=== PATIENT | female | born 1945 | race Two or more races ===

== ENCOUNTER 2020-06-20 13:36 | Outpatient (REF) | payer MEDICARE, SELFPAY ==
--- NOTE | 2020-06-20 | MM_ITS ---
EXAMINATION: MM SCREENING DIGITAL BREAST TOMOSYNTHESIS, BILATERAL CLINICAL INFORMATION: Screening. Asymptomatic. The lifetime risk of breast cancer based on the Tyrer-Cuzick Model is 2%. COMPARISON: Mammography: 11/13/2018, 11/11/2017 TECHNIQUE: Digital breast tomosynthesis is performed in both the craniocaudal and mediolateral oblique views along with computer-aided detection (CAD). Synthesized 2D images are generated from the tomosynthesis. FINDINGS: There are scattered areas of fibroglandular density (ACR BI-RADS breast composition Category b). There are no significant masses, abnormal calcifications, or other abnormalities. There are scattered ductal secretory calcifications again noted bilateral medial breasts. Low right axillary tail node stable. There is a dermal lesion overlying the posterior upper left breast on MLO view. MM/MM tomosynthesis screening BI IMPRESSION: No mammographic evidence of malignancy. ASSESSMENT: BI-RADS 2: Benign RECOMMENDATION: Routine annual mammography screening. This patient's information was entered into a reminder system with a target due date for their next mammogram.
== END 2020-06-20 13:37 | disposition home or self-care (01) ==
LOC: HO.MAMMO 13:36
PROVIDERS: PCP Internal Medicine; Visit Provider Internal Medicine
DX: Z12.31 Encounter for screening mammogram for malignant neoplasm of breast (principal)
CPT/HCPCS: 77063; 77067

== ENCOUNTER 2020-08-25 07:21 | Day surgery (SDC) | payer MEDICARE, SELFPAY ==
[2020-08-19 12:42] VITALS: BMI 31.9
[2020-08-19 12:49] VITALS: BMI 31.9
--- NOTE | 2020-08-22 10:28 | P.CONAN_ITS ---
Documented by User: Haylee Mariee 08/22/20 10:29 HPI - Anesthesia Eval Consult details Narrative: 74yo F for Colonoscopy [facility] Past Medical History Medical History HTN (hypertension) Hyperglycemia Hyperlipidemia Osteopenia Thyroid nodule Family History Family History Father Stroke Mother No problems noted. Surgical History Surgical History H/O colonoscopy Hx of blepharoplasty S/P KWAKU (total abdominal hysterectomy) Social History Social History Smoking Status: Never smoker Use of substances other than those prescribed or required for medical reasons: No Advance Directives Information Provided: No Recently lost weight without trying: No Meds Allergies Allergy/AdvReac Type Severity Reaction Status Date / Time No Known Allergies Allergy Verified 06/23/20 15:05 Home Medications Medication Instructions Recorded Confirmed Type hydrochlorothiazide 25 mg tablet 25 mg PO DAILY 05/12/20 08/19/20 History metoprolol succinate 50 mg 50 mg PO DAILY 05/12/20 08/19/20 History tablet,extended release 24 hr simvastatin 40 mg tablet 40 mg PO DAILY 05/12/20 08/19/20 History Exam Exam Date and Time: August 22, 2020 1028 Height,Weight and Vital Signs: Height 5 ft 5 in Weight 87.09 kg Assessment and Plan Assessment Anesthesia Assessment: Chart Reviewed Documented by User: Josephine Cerda 08/25/20 08:55 [facility] Past Medical History Medical History HTN (hypertension) Hyperglycemia Hyperlipidemia Osteopenia Thyroid nodule Family History Family History Father Stroke Mother No problems noted. Surgical History Surgical History H/O colonoscopy Hx of blepharoplasty S/P KWAKU (total abdominal hysterectomy) Social History Social History Smoking Status: Never smoker Use of substances other than those prescribed or required for medical reasons: No Advance Directives Information Provided: No Recently lost weight without trying: No Meds Allergies Allergy/AdvReac Type Severity Reaction Status Date / Time No Known Allergies Allergy Verified 06/23/20 15:05 Home Medications Medication Instructions Recorded Confirmed Type hydrochlorothiazide 25 mg tablet 25 mg PO DAILY 05/12/20 08/19/20 History metoprolol succinate 50 mg 50 mg PO DAILY 05/12/20 08/19/20 History tablet,extended release 24 hr simvastatin 40 mg tablet 40 mg PO DAILY 05/12/20 08/19/20 History Exam Airway Mallampati Class: II TM Dist: >3cm Denture: Upper Heart: RRR Lungs: CtA
[2020-08-25 08:16] VITALS: BP 168/64; PULSE 80; RESP 18; TEMP 37; O2SAT 99
[2020-08-25] MEDS: Lactated Ringers 1,000 ML 100 ML IVCONT (08:23)
--- NOTE | 2020-08-25 08:32 | W.PM.OPN ---
Operative Note Operative Note Date of Service: 08/25/20 Narrative: Pre-op diagnosis: Colon cancer screening, history of colon polyps Post-op diagnosis: other (Colon polyps, diverticulosis, hemorrhoids) Procedure: COLONOSCOPY TO CECUM WITH SNARE POLYPECTOMY AND SUBMUCOSAL INJECTION Consent: Indications for the procedure and potential complications of bleeding, perforation, reaction to medications and missed diagnosis were discussed with the patient and informed consent was obtained. Instrument: Olympus PCF H 190 L variable stiffness pediatric colonoscope Monitoring: Vital signs and clinical assessment, intermittent blood pressure monitoring, continuous EKG monitoring, Pulse oximetry and Carbon Dioxide monitoring were done throughout the procedure. Colon withdrawl time was 21 minutes. Procedure: The patient was placed in the left lateral decubitis position and pre-procedure medications were administered. After a digital rectal examination of the ano-rectum, the video colonoscope was inserted into the rectum and advanced through the colon to the cecum. The colonoscope was slowly withdrawn in a retrograde panoramic fashion and the colon mucosa was carefully examined including a retroflexed view of the rectum. Findings and interventions are described below. Procedure Difficulty: Without difficulty Findings: Terminal Ileum: Not evaluated Cecum: Normal Ascending Colon: Two 8-10 mm sessile polyps removed with a cold snare. Transverse Colon: A 1.5 to 2 cms flat polyp raised with 3 cc of normal saline (submucosal injection) and removed with a hot snare. Moderate diverticulosis Descending Colon: Moderate diverticulosis Sigmoid Colon: Moderate diverticulosis Rectum: Normal Ano-rectum: Moderate internal hemorrhoids Colon preparation: Good Impression and Post Procedure Diagnosis: Colonoscopy Findings: Three medium sized polyps removed Moderate diverticulosis seen in the left and transverse colon Moderate hemorrhoids on retroflexed exam. Plan: Await pathology results Patient has an appointment on 09/02/20 in the [facility] with GINO Peters. Repeat Colonoscopy interval based on path results - in 2 years if polyps are adenomatous and due to a hx of colon. Above findings were reviewed with the patient and colon polyps and diverticulosis handouts were given in the discharge area Surgeon: Lela King MD Anesthesia: MAC (Dr Bowens) Estimated blood loss (mL): 0 Pathology: other (A. TC polyp x 1, B. AC polyps x 2) Condition: stable Disposition: PACU
--- NOTE | 2020-08-25 08:32 | MHC.SHP ---
Pre-Procedural Eval Section A The patient is an INPATIENT: No The History & Physical has been completed within 30 days and I have reviewed it.: No Section B Chief Complaint: Hx of Colon Polyps Details of Present Illness: hx of colon polyps Relevant Family History (Specify if Yes): No Relevant Social History: None Present Medications: see Short Stay Collaborative assessment Medical History: Significant History (Hypertention. Hyperlipid. Varicose veins. GERD. ) History of Previous Operations: Relevant previous surgery/procedure and date(s) (colonoscopy 3 polyps 06/2015 varicose veins surgery ) Allergies: Allergies Allergy/AdvReac Type Severity Reaction Status Date / Time No Known Allergies Allergy Verified 06/23/20 15:05 Review of Systems Sugical H&P ROS: Negative: Constitution, Cardiovascular, Respiratory and Gastrointestinal Exam Surgical H&P Exam: Normal: Heart, Normal: Lungs, Normal: Extremities and Normal: Abdomen Plan Diagnosis/Plan: Unchanged I have reviewed the history and physical and performed a pertinent physical examination on my patient. No changes have occurred unless specified.
[2020-08-25 09:25] VITALS: BP 121/70; PULSE 72; RESP 16; TEMP 36.2; O2SAT 99
--- NOTE | 2020-08-25 09:33 | HO.POSTANES ---
Post Anesthesia Evaluation Post Anesthesia Evaluation Vital Signs: Vital Signs Temp Pulse Resp BP Pulse Ox 08/25/20 08:16 98.6 F 80 18 168/64 H 99 Anesthesia: Monitored Mental Status: Awake Pain Control: Satisfactory Nausea/Vomiting: None Hydration: Adequate Anesthesia-Related Issues: No Anes. Related Issues
[2020-08-25 09:40] VITALS: BP 139/86; PULSE 71; RESP 17; TEMP 36.2; O2SAT 99
== END 2020-08-25 10:02 | disposition home or self-care (01) ==
PROVIDERS: PCP Internal Medicine; Visit Provider Internal Medicine Gastroenterology
PROC: 0DJD8ZZ Inspection of Lower Intestinal Tract, Via Natural or Artificial Opening Endoscopic (ICD-10-PCS; CPT 45378; principal; 2020-08-25 08:30)
DX: Z12.11 Encounter for screening for malignant neoplasm of colon (principal); Z86.010 Personal history of colon polyps; D12.2 Benign neoplasm of ascending colon; D12.3 Benign neoplasm of transverse colon; K57.30 Diverticulosis of large intestine without perforation or abscess without bleeding; K64.8 Other hemorrhoids; I10 Essential (primary) hypertension; M85.80 Other specified disorders of bone density and structure, unspecified site; R73.9 Hyperglycemia, unspecified; Z79.899 Other long term (current) drug therapy
CPT/HCPCS: 45385; 45381; 88305

== ENCOUNTER → 2020-09-02 08:44 | Outpatient (BNVA) | payer BC, SELFPAY | PROVIDERS: PCP Internal Medicine; Referring Provider Internal Medicine; Visit Provider Physician Assistant ==

== ENCOUNTER 2021-02-17 08:19 | Outpatient (REF) | payer MEDICARE, SELFPAY ==
[2021-02-17 10:11] LABS: Alanine Aminotransferase 22 U/L (0-31); Albumin Level 4.1 g/dL (3.5-5.0); Alkaline Phosphatase 60 U/L (39-117); Anion Gap 12 (12-20); Aspartate Amino Transferase 23 U/L (5-31); Bilirubin Total 0.7 mg/dL (0.0-1.0); Blood Urea Nitrogen 14 mg/dL (9-16); Calcium 9.4 mg/dL (8.4-10.2); Carbon Dioxide 30 mmol/L (22-29); Chloride 104 mmol/L (96-108); Estimated Glomerular Filt Rate > 60; Glucose Fasting 114 mg/dL (60-99); Potassium 4.2 mmol/L (3.3-5.1); Sodium 142 mmol/L (135-145); Total Protein 6.9 g/dL (6.5-8.0)
== END 2021-02-17 08:20 | disposition home or self-care (01) ==
LOC: HO.LAB 08:19
PROVIDERS: PCP Internal Medicine; Visit Provider Internal Medicine
DX: E78.5 Hyperlipidemia, unspecified (principal)
CPT/HCPCS: 36415; 80053

== ENCOUNTER 2021-02-24 10:12 | Outpatient (REF) | payer MEDICARE, SELFPAY ==
[2021-02-24 11:22] LABS: Glucose Urine UA NEG (NEG); Leukocyte Esterase Urine NEG (NEG); Nitrite Urine NEG (NEG); Urine Blood NEG (NEG); Urine Ketones NEG (NEG); Urine Protein NEG (NEG-TRACE)
[2021-02-24 11:29] LABS: Appearance Urine CLEAR; Color Urine YELLOW
== END 2021-02-24 10:13 | disposition home or self-care (01) ==
LOC: HO.HMGCLDS 10:12
PROVIDERS: PCP Internal Medicine; Visit Provider Internal Medicine
DX: R30.0 Dysuria (principal)
CPT/HCPCS: 81003

== ENCOUNTER 2021-07-03 08:59 | Outpatient (REF) | payer MEDICARE, SELFPAY ==
[2021-07-03 12:02] LABS: Hematocrit 41.5 % (37.0-47.0); Hemoglobin 13.5 g/dl (12.0-16.0); Mean Corpuscular HGB Conc 32.5 g/dl (31.0-35.0); Mean Corpuscular Hemoglobin 29.5 pg (27.0-33.0); Mean Corpuscular Volume 90.6 fL (80.0-98.0); Mean Platelet Volume 11.6 fL (9.4-12.3); Platelet Count 200 X10*3/uL (160-400); Red Blood Count 4.58 X10*6/uL (4.20-5.50); Red Cell Distribution Width 13.1 % (11.0-16.0); White Blood Count 6.7 X10*3/uL (4.8-10.8)
[2021-07-03 12:04] LABS: Estimated Average Glucose 128 mg/dL; Hemoglobin A1c % 6.1 %
[2021-07-03 12:30] LABS: Alanine Aminotransferase 25 U/L (0-31); Albumin Level 4.2 g/dL (3.5-5.0); Alkaline Phosphatase 58 U/L (39-117); Anion Gap 12 (12-20); Aspartate Amino Transferase 22 U/L (5-31); Bilirubin Total 0.9 mg/dL (0.0-1.0); Blood Urea Nitrogen 17 mg/dL (9-16); Calcium 9.6 mg/dL (8.4-10.2); Carbon Dioxide 29 mmol/L (22-29); Chloride 105 mmol/L (96-108); Cholesterol 189 mg/dL; Estimated Glomerular Filt Rate > 60; Glucose Fasting 121 mg/dL (60-99); HDL Cholesterol 43 mg/dL; LDL Cholesterol Calculated 118 mg/dl; Potassium 4.3 mmol/L (3.3-5.1); Sodium 142 mmol/L (135-145); Total Protein 7.1 g/dL (6.5-8.0); Triglycerides 144 mg/dL
== END 2021-07-03 09:00 | disposition home or self-care (01) ==
LOC: HO.HMGCLDS 08:59
PROVIDERS: PCP Internal Medicine; Visit Provider Internal Medicine
DX: E78.5 Hyperlipidemia, unspecified (principal); I10 Essential (primary) hypertension; R73.9 Hyperglycemia, unspecified
CPT/HCPCS: 36415; 80053; 80061; 83036; 85027

== ENCOUNTER 2021-07-13 08:15 | Outpatient (REF) | payer MEDICARE, SELFPAY ==
--- NOTE | ~2021-07-13 | MM_ITS ---
EXAMINATION: MM SCREENING DIGITAL BREAST TOMOSYNTHESIS, BILATERAL CLINICAL INFORMATION: Screening. Asymptomatic. The lifetime risk of breast cancer based on the Tyrer-Cuzick Model is 2%. COMPARISON: Mammography: 06/20/2020, 11/13/2018, 11/11/2017 TECHNIQUE: Digital breast tomosynthesis is performed in both the craniocaudal and mediolateral oblique views along with computer-aided detection (CAD). Synthesized 2D images are generated from the tomosynthesis. FINDINGS: There are scattered areas of fibroglandular density (ACR BI-RADS breast composition Category b). There are no significant masses, abnormal calcifications, or other abnormalities. Scattered bilateral ductal secretory calcifications are again seen greater in the bilateral medial breasts. There is a dermal lesion overlying the posterior upper outer left upper left breast. No significant changes. MM/MM tomosynthesis screening BI IMPRESSION: No mammographic evidence of malignancy. ASSESSMENT: BI-RADS 2: Benign RECOMMENDATION: Routine annual mammography screening. This patient's information was entered into a reminder system with a target due date for their next mammogram.
== END 2021-07-13 08:16 | disposition home or self-care (01) ==
LOC: HO.MAMMO 08:15
PROVIDERS: PCP Internal Medicine; Visit Provider Internal Medicine
DX: Z12.31 Encounter for screening mammogram for malignant neoplasm of breast (principal)
CPT/HCPCS: 77063; 77067

== ENCOUNTER 2021-11-28 08:47 | Outpatient (REF) | payer MEDICARE, SELFPAY ==
[2021-11-28 11:13] LABS: Hemoglobin 13.1 g/dl (12.0-16.0); Mean Corpuscular HGB Conc 32.8 g/dl (31.0-35.0); Mean Corpuscular Hemoglobin 29.1 pg (27.0-33.0); Mean Corpuscular Volume 88.9 fL (80.0-98.0); Mean Platelet Volume 11.8 fL (9.4-12.3); Platelet Count 232 X10*3/uL (160-400); Red Cell Distribution Width 12.4 % (11.0-16.0); White Blood Count 8.2 X10*3/uL (4.8-10.8)
[2021-11-28 11:27] LABS: Alanine Aminotransferase 23 U/L (0-31); Albumin Level 4.3 g/dL (3.5-5.0); Alkaline Phosphatase 67 U/L (39-117); Anion Gap 13 (12-20); Aspartate Amino Transferase 22 U/L (5-31); Bilirubin Total 0.7 mg/dL (0.0-1.0); Blood Urea Nitrogen 12 mg/dL (9-16); Calcium 10.2 mg/dL (8.4-10.2); Carbon Dioxide 30 mmol/L (22-29); Chloride 102 mmol/L (96-108); Cholesterol 197 mg/dL; Estimated Glomerular Filt Rate > 60; Glucose Fasting 117 mg/dL (60-99); HDL Cholesterol 40 mg/dL; LDL Cholesterol Calculated 130 mg/dl; Potassium 3.9 mmol/L (3.3-5.1); Sodium 141 mmol/L (135-145); Total Protein 7.5 g/dL (6.5-8.0); Triglycerides 137 mg/dL
[2021-11-28 12:14] LABS: Estimated Average Glucose 128 mg/dL; Hemoglobin A1C 151.0045 umol/L; Hemoglobin A1c % 6.1 %
== END 2021-11-28 08:48 | disposition home or self-care (01) ==
LOC: HO.HMGCLDS 08:47
PROVIDERS: PCP Internal Medicine; Visit Provider Internal Medicine
DX: I10 Essential (primary) hypertension (principal); R73.9 Hyperglycemia, unspecified; E78.5 Hyperlipidemia, unspecified
CPT/HCPCS: 36415; 80053; 80061; 83036; 85027

== ENCOUNTER → 2022-04-27 10:14 | Outpatient (BNVA) | payer MEDICARE, SELFPAY | PROVIDERS: PCP Internal Medicine; Visit Provider Surgery Vascular Surgery | DX: I83.12 Varicose veins of left lower extremity with inflammation (principal) | CPT/HCPCS: 99212 ==

== ENCOUNTER 2022-05-14 08:48 | Outpatient (REF) | payer MEDICARE, SELFPAY ==
[2022-05-14 11:39] LABS: Hematocrit 40.3 % (37.0-47.0); Hemoglobin 13.1 g/dl (12.0-16.0); Mean Corpuscular HGB Conc 32.5 g/dl (31.0-35.0); Mean Corpuscular Hemoglobin 28.4 pg (27.0-33.0); Mean Corpuscular Volume 87.4 fL (80.0-98.0); Mean Platelet Volume 11.6 fL (9.4-12.3); Platelet Count 237 X10*3/uL (160-400); Red Blood Count 4.61 X10*6/uL (4.20-5.50); Red Cell Distribution Width 13.1 % (11.0-16.0); White Blood Count 8.2 X10*3/uL (4.8-10.8)
[2022-05-14 11:50] LABS: Estimated Average Glucose 126 mg/dL; Hemoglobin A1C 148.8228 umol/L
[2022-05-14 12:10] LABS: Alanine Aminotransferase 20 U/L (0-31); Albumin Level 4.4 g/dL (3.5-5.0); Alkaline Phosphatase 72 U/L (39-117); Anion Gap 16 (12-20); Aspartate Amino Transferase 21 U/L (5-31); Bilirubin Total 0.8 mg/dL (0.0-1.0); Blood Urea Nitrogen 14 mg/dL (9-16); Calcium 9.7 mg/dL (8.4-10.2); Carbon Dioxide 29 mmol/L (22-29); Chloride 101 mmol/L (96-108); Cholesterol 223 mg/dL; Estimated Glomerular Filt Rate > 60; Glucose Fasting 116 mg/dL (60-99); HDL Cholesterol 53 mg/dL; LDL Cholesterol Calculated 142 mg/dl; Potassium 3.8 mmol/L (3.3-5.1); Sodium 142 mmol/L (135-145); Total Protein 7.5 g/dL (6.5-8.0); Triglycerides 141 mg/dL
[2022-05-14 12:19] LABS: Creatinine Urine 272.76 mg/dL; Microalbum/Creatinine Ratio Ur 9.8 ug/mg cr
== END 2022-05-14 08:49 | disposition home or self-care (01) ==
LOC: HO.HMGCLDS 08:48
PROVIDERS: PCP Internal Medicine; Visit Provider Internal Medicine
DX: E78.5 Hyperlipidemia, unspecified (principal); I10 Essential (primary) hypertension
CPT/HCPCS: 36415; 80053; 80061; 82043; 83036; 85027

== ENCOUNTER 2022-06-23 10:08 | Outpatient (REF) | payer MEDICARE, SELFPAY ==
--- NOTE | ~2022-06-23 | US_ITS ---
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 History of right great saphenous vein stripping and left great saphenous vein ablation COMPARISON: None. TECHNIQUE: Color flow triplex imaging and compression Doppler was performed to evaluate both the deep and the superficial systems bilaterally. To evaluate the superficial system, the examination was performed in the upright position. Color-flow Doppler ultrasound and compression ultrasound were utilized. In addition, maneuvers were utilized to demonstrate reflux. FINDINGS: 1. DEEP VENOUS ULTRASOUND OF THE RIGHT LOWER EXTREMITY: Common Femoral Vein: Compressible, normal respiratory variation and augmented flow. Femoral Vein: Compressible, normal color flow and augmentation. Popliteal Vein: Compressible, normal augmentation. Deep Reflux: There is no evidence of reflux in the deep system in either the common femoral vein or the popliteal vein. There is no evidence of a Echavarria's cyst. 2. SUPERFICIAL ULTRASOUND WITH DOPPLER OF RIGHT LOWER EXTREMITY: GREAT SAPHENOUS VEIN: Saphenofemoral Junction: 0.6 cm; Reflux: 0 ms Remainder of the great saphenous vein is not visualized consistent with prior vein stripping DUPLICATED MEDIAL GREAT SAPHENOUS VEIN: Diameter: None Imaged Reflux: NA DUPLICATED LATERAL GREAT SAPHENOUS VEIN: Diameter: None Imaged Reflux: NA SMALL SAPHENOUS VEIN: Proximal: 0.3 cm; Reflux: 0 ms Distal: 0.3 cm; Reflux: 0 ms VEIN OF GIACOMINI: None Imaged. PERFORATORS: Location: Mid thigh, proximal calf, mid calf Size: 0.3 to 0.7 cm Reflux: Up to 3032 ms within the mid to thigh agronomy technician VARICOSITIES: Location: Mid thigh and knee arising from the agronomy technician veins, mid calf and distal calf Size: 0.3 to 0.9 cm Reflux: 932 ms to 2560 ms 3. DEEP VENOUS ULTRASOUND OF THE LEFT LOWER EXTREMITY: Common Femoral Vein: Compressible, normal respiratory variation and augmented flow. Femoral Vein: Compressible, normal color flow and augmentation. Popliteal Vein: Compressible, normal augmentation. Deep Reflux: There is reflux in the common femoral vein measuring 1884 ms. There is reflux in the mid superficial femoral vein measuring 2340 ms There is no evidence of a Echavarria's cyst. 4. SUPERFICIAL ULTRASOUND WITH DOPPLER OF LEFT LOWER EXTREMITY: GREAT SAPHENOUS VEIN: Saphenofemoral Junction: 1.1 cm; Reflux: 0 ms Proximal Thigh: 0.5 cm; Reflux: 0 ms Remainder of the great saphenous vein is not visualized consistent with prior ablation DUPLICATED MEDIAL GREAT SAPHENOUS VEIN: Diameter: None Imaged Reflux: NA DUPLICATED LATERAL GREAT SAPHENOUS VEIN: Diameter: None Imaged Reflux: NA SMALL SAPHENOUS VEIN: Proximal: 0.2 cm; Reflux: 0 ms Distal: 0.3 cm; Reflux: 2992 ms VEIN OF GIACOMINI: None Imaged. PERFORATORS: Location: Mid thigh, proximal calf, mid calf and distal calf Size: 0.3 to 0.8 cm Reflux: 3276 ms to 3448 ms within the mid to thigh perforators VARICOSITIES: Location: Mid thigh, anterior thigh and knee arising from the agronomy technician veins. The distal calf Size: 0.3 to 0.5 cm Reflux: Ranging from 2816 ms to 3436 ms US/US venous duplex LE BI IMPRESSION: Right: Status post prior right great saphenous vein stripping. There are multiple agronomy technician veins with reflux extending into multiple varicose veins as described above Left: Status post left great saphenous vein ablation. There are multiple agronomy technician veins with reflux extending into multiple varicose veins as described above
== END 2022-06-23 10:09 | disposition home or self-care (01) ==
LOC: HO.US 10:08
PROVIDERS: Visit Provider Surgery Vascular Surgery
DX: I83.12 Varicose veins of left lower extremity with inflammation (principal)
CPT/HCPCS: 93970

== ENCOUNTER → 2022-06-29 08:57 | Outpatient (BNVA) | payer MEDICARE, SELFPAY | PROVIDERS: PCP Internal Medicine; Visit Provider Surgery Vascular Surgery | DX: I83.12 Varicose veins of left lower extremity with inflammation (principal) | CPT/HCPCS: 99212 ==

== ENCOUNTER 2022-07-27 07:26 | Outpatient (REF) | payer MEDICARE, SELFPAY ==
--- NOTE | ~2022-07-27 | MM_ITS ---
EXAMINATION: MM SCREENING DIGITAL BREAST TOMOSYNTHESIS, BILATERAL CLINICAL INFORMATION: Screening. Asymptomatic. The lifetime risk of breast cancer based on the Tyrer-Cuzick Model is 1%. COMPARISON: Mammography: July 13, 2021 and studies dating back to October 23, 2015 TECHNIQUE: Digital breast tomosynthesis is performed in both the craniocaudal and mediolateral oblique views along with computer-aided detection (CAD). Synthesized 2D images are generated from the tomosynthesis. FINDINGS: There are scattered areas of fibroglandular density (ACR BI-RADS breast composition Category b). There are no significant masses, abnormal calcifications, or other abnormalities. MM/MM tomosynthesis screening BI IMPRESSION: No significant changes from prior exam. ASSESSMENT: BI-RADS 1: Negative RECOMMENDATION: Routine annual mammography screening. This patient's information was entered into a reminder system with a target due date for their next mammogram.
== END 2022-07-27 07:27 | disposition home or self-care (01) ==
LOC: HO.MAMMO 07:26
PROVIDERS: PCP Internal Medicine; Visit Provider Internal Medicine
DX: Z12.31 Encounter for screening mammogram for malignant neoplasm of breast (principal)
CPT/HCPCS: 77063; 77067

== ENCOUNTER 2022-08-23 09:49 | Day surgery (SDC) | payer MEDICARE, SELFPAY ==
[2022-08-18 10:07] VITALS: BMI 30.7
[2022-08-23] VITALS (7 sets, daily range): BP systolic 130–169; BP diastolic 61–75; PULSE 56–67; RESP 16–20; TEMP 36.1–36.4; O2SAT 94–100
--- NOTE | 2022-08-23 11:40 | HO.ANESPROP2 ---
HPI - Anesthesia Eval Consult details Narrative: 76 F for micro phebotomy left varicose veins PMFSH Active Problems Active Problems: All Active Problems (Updated 04/27/22 @ 11:04 by Dago Jaeger MD) Abnormal colonoscopy (Acute) Varicose veins of left lower extremity with inflammation (Acute) Dysuria (Acute) Osteopenia (Acute) Hyperglycemia (Acute) Hyperlipidemia (Acute) HTN (hypertension) (Acute) Past Medical History Medical History Dysuria HTN (hypertension) Hyperglycemia Hyperlipidemia Osteopenia Thyroid nodule Functional capacity: independent ambulation Family History Family History Father Stroke Mother No problems noted. Family history of problems with anesthesia: No Surgical History Surgical History (Updated 08/18/22 @ 09:59 by Digna Ledezma RN) H/O colonoscopy Hx of blepharoplasty Hx of vein stripping S/P KWAKU (total abdominal hysterectomy) History of Problems with Anesthesia: No Social History Social History Household Members: Spouse Housing: House Are you a primary outdoor emergency care technician to a significant other at home: No Do you presently have visiting nurse or other home services: No Alcohol intake: current Alcohol intake frequency: does not drink Patient Tobacco Use Status: Never used Tobacco e-Cigarette/Vaping Use: Never Used Current occupational status: retired Cognitive needs: No Hearing needs: No Vision needs: Yes Meds Allergies Allergy/AdvReac Type Severity Reaction Status Date / Time No Known Allergies Allergy Verified 06/29/22 09:08 Home Medications Medication Instructions Recorded Confirmed Last Taken Type omega 6-wze-zlu-fish oil 60 mg-90 1 cap PO DAILY 08/23/22 08/23/22 08/09/22 History mg-500 mg capsule (Fish Oil) Exam Exam Date and Time: August 23, 2022 1140 Height,Weight and Vital Signs: Height 5 ft 5 in Weight 83.915 kg Last Vital Signs Temp 97.6 F 08/23/22 10:19 Pulse 60 08/23/22 10:19 Resp 20 08/23/22 10:19 BP 169/75 H 08/23/22 10:19 Pulse Ox 97 08/23/22 10:19 O2 Del Method 08/23/22 10:19 Airway Mallampati Class: III Denture: Upper Loose/Missing/Broken Teeth: Yes Heart: S1,S2 Lungs: b/l breath sounds Assessment and Plan Assessment Anesthesia Assessment: Anesthesia Plan Discussed and Chart Reviewed Final Anesthetic Review Family History of Problems with Anesthesia: No History of Problems with Anesthesia: No NPO: Yes ASA Class: III Final Preanesthetic Review: Meds/Allgs Chart Reviewed, Consent Obtained/Reviewed and Anes Risks/Benef Reviewed Patient Risk: Intermediate Procedure Risk: Intermediate Anesthetic Plan Anesthetic Plan: GA Disposition: Standard PACU
--- NOTE | 2022-08-23 11:42 | MHC.SHP ---
Pre-Procedural Eval Section A Date of Service: 08/23/22 The patient is an INPATIENT: No Changes since office visit: Yes Patient answered all questions The History & Physical has been completed within 30 days and I have reviewed it.: Yes Section B Chief Complaint: Varicose veins of left lower extremity with inflam Allergies: Allergies Allergy/AdvReac Type Severity Reaction Status Date / Time No Known Allergies Allergy Verified 06/29/22 09:08 Plan I have reviewed the history and physical and performed a pertinent physical examination on my patient. No changes have occurred unless specified. Time Spent With Patient Time: Total time managing care of this patient today ____ minutes.
--- NOTE | 2022-08-23 13:12 | P.OP_ITS ---
Operative Note Operative Note Date of Service: 08/23/22 Narrative: Operative note by [facility] Preoperative diagnosis: Left leg varicose veins with inflammation Postoperative diagnosis: Same Procedure:1. Left leg microphlebectomy(27) 2. Ligation of left leg venous c luster Surgeon:Dago Jaeger M.D. Cable Tv Installer: Jordan Anesthesia: General Specimens: 1 Drains: None Estimated blood loss: 100 mL Indications: Very pleasant 76-year-old female presents for treatment of left lower extremity varicosities. She has significant large varicosities greater than 4-5 mm. She now presents for operative intervention The patient has signed the informed consent after reviewing risks, complications, benefits, and alternatives previously discussed with the patient. The patient was given the opportunity to ask any additional questions or voice any concerns. All qu estions were answered to the patient's satisfaction. Procedure in detail: Varicose veins were marked in the standing position on the left leg and the patient was then placed in the supine position. The left lower extremity was prepared and draped to allow knee flexion in the sterile field. The patient had large superficial varicose veins with significant symptoms of pain. It was therefore determined to perform microphlebectomies of the clusters of varicose veins. The patient had bulging varicose veins which were previously marked in the standing position. A small stab incision was made longitudinally directly overlying the varicose vein in the calf and the varicose vein was grasped with a hemostat aided by a vein hook. It was then dissected as far proximally and distally as possible and avulsed. A total of 27 stab incisions were made and the procedure of stab phlebectomies was repeated 27 times. On the left medial thigh and there was a cluster of varicosities. Using 11 blade we got down to the base of the varicosities. This was suture ligated with a 3-0 Polysorb suture. Residual varicosities were removed. Hemostasis was checked and stab incision sites were closed with steri-strips and sterile dressing was given with gauze and krilex wrap followed by an didi bandage. There were no complications and blood loss was 100 mll. Post-Op instructions were given and a follow-up appointment was recommended. This note is constructed using voice recognition software. While every effort has been made to ensure accuracy, knockout machine operator errors may have been included. Thank you for allowing me to participate in the care of your patient. Yours sincerely, Dago Jaeger MD, FACS, R.P.V.I.
[2022-08-23] MEDS: oxyCODONE HCl Immed Release 5 MG TABLET PO (13:18)
[2022-08-23] MEDS: Acetaminophen 325 MG TABLET 650 MG PO (13:19)
== END 2022-08-23 14:22 | disposition home or self-care (01) ==
PROVIDERS: PCP Internal Medicine; Visit Provider Surgery Vascular Surgery
PROC: (CPT 37766; principal; 2022-08-23 11:50)
DX: I83.12 Varicose veins of left lower extremity with inflammation (principal); I10 Essential (primary) hypertension; E78.5 Hyperlipidemia, unspecified; R73.9 Hyperglycemia, unspecified; M85.80 Other specified disorders of bone density and structure, unspecified site; Z79.51 Long term (current) use of inhaled steroids; Z79.899 Other long term (current) drug therapy
CPT/HCPCS: 37766; 37785; 88304; J0690; J1100; J1170; J2405; J2795

== ENCOUNTER → 2022-09-07 08:54 | Outpatient (BNVA) | payer MEDICARE, SELFPAY | PROVIDERS: PCP Internal Medicine; Visit Provider Surgery Vascular Surgery | DX: I83.12 Varicose veins of left lower extremity with inflammation (principal); I83.11 Varicose veins of right lower extremity with inflammation; Z98.890 Other specified postprocedural states | CPT/HCPCS: 99212 ==

== ENCOUNTER → 2022-11-09 09:09 | Outpatient (BNVA) | payer MEDICARE, SELFPAY | PROVIDERS: PCP Internal Medicine; Visit Provider Surgery Vascular Surgery | DX: I83.11 Varicose veins of right lower extremity with inflammation (principal); I83.12 Varicose veins of left lower extremity with inflammation | CPT/HCPCS: 99212 ==

== ENCOUNTER 2022-11-11 06:56 | Outpatient (REF) | payer MEDICARE, SELFPAY ==
[2022-11-11 07:05] LABS: MANUAL DIFF FLAG NO
[2022-11-11 07:32] LABS: Basophils Absolute Auto 0.1 X10*3/uL (0.0-0.2); Basophils Percent Auto 0.5 % (0-2); Eosinophils Absolute Auto 0.3 X10*3/uL (0.0-0.4); Eosinophils Percent Auto 3.2 % (0-4); Hematocrit 40.1 % (37.0-47.0); Hemoglobin 12.9 g/dl (12.0-16.0); Imm Gran Abs Auto 0.03 X10*3/uL (0.00-0.03); Imm Gran Pct Auto 0.3 % (0.0-0.4); Lymphocytes Absolute Auto 4.4 X10*3/uL (1.2-4.9); Lymphocytes Percent Auto 44.3 % (20-40); Mean Corpuscular HGB Conc 32.2 g/dl (31.0-35.0); Mean Corpuscular Hemoglobin 28.1 pg (27.0-33.0); Mean Corpuscular Volume 87.4 fL (80.0-98.0); Mean Platelet Volume 11.4 fL (9.4-12.3); Monocytes Absolute Auto 0.8 X10*3/uL (0.1-1.2); Monocytes Percent Auto 7.6 % (2-11); Neutrophils Absolute Auto 4.3 x10*3/uL (2.0-8.3); Neutrophils Percent Auto 44.1 % (45-73); Platelet Count 226 X10*3/uL (160-400); Red Blood Count 4.59 X10*6/uL (4.20-5.50); Red Cell Distribution Width 13.2 % (11.0-16.0); White Blood Count 9.8 X10*3/uL (4.8-10.8)
[2022-11-11 07:45] LABS: Estimated Average Glucose 123 mg/dL; Hemoglobin A1c % 5.9 %
[2022-11-11 08:01] LABS: Alanine Aminotransferase 20 U/L (0-31); Albumin Level 4.2 g/dL (3.5-5.0); Alkaline Phosphatase 70 U/L (39-117); Anion Gap 13 (12-20); Aspartate Amino Transferase 20 U/L (5-31); Bilirubin Total 0.8 mg/dL (0.0-1.0); Blood Urea Nitrogen 15 mg/dL (9-16); Calcium 9.6 mg/dL (8.4-10.2); Carbon Dioxide 30 mmol/L (22-29); Chloride 104 mmol/L (96-108); Cholesterol 215 mg/dL; Estimated Glomerular Filt Rate > 60; Glucose Fasting 124 mg/dL (60-99); HDL Cholesterol 49 mg/dL; LDL Cholesterol Calculated 133 mg/dl; Sodium 143 mmol/L (135-145); Total Protein 6.7 g/dL (6.5-8.0); Triglycerides 168 mg/dL
[2022-11-11 08:15] LABS: TSH reflex Free T4 2.61 uIU/mL (0.32-4.0); Vitamin D 25-OH Total 49.9 ng/mL (>30)
== END 2022-11-11 06:57 | disposition home or self-care (01) ==
LOC: HO.LAB 06:56
PROVIDERS: PCP Internal Medicine; Visit Provider Internal Medicine
DX: E78.5 Hyperlipidemia, unspecified (principal); I10 Essential (primary) hypertension; R73.9 Hyperglycemia, unspecified; M85.80 Other specified disorders of bone density and structure, unspecified site
CPT/HCPCS: 36415; 80053; 80061; 82306; 83036; 84443; 85025

== ENCOUNTER 2023-03-07 06:41 | Day surgery (SDC) | payer MEDICARE, SELFPAY ==
[2023-03-02 15:28] VITALS: BMI 30.3
[2023-03-07 07:22] VITALS: BP 177/67; PULSE 69; RESP 18; TEMP 36.2; O2SAT 98
[2023-03-07 07:25] VITALS: BMI 30.4
[2023-03-07] MEDS: Lactated Ringers 1,000 ML 100 ML IVCONT (07:43)
--- NOTE | 2023-03-07 07:44 | MHC.SHP ---
Pre-Procedural Eval Section A Date of Service: 03/07/23 The patient is an INPATIENT: No The History & Physical has been completed within 30 days and I have reviewed it.: No Section B Chief Complaint: Screening, history of colon polyps Relevant Family History (Specify if Yes): No Relevant Social History: None Present Medications: see Short Stay Collaborative assessment Medical History: Significant History (HTN (hypertension) Hyperglycemia Hyperlipidemia Osteopenia Thyroid nodule) History of Previous Operations: Relevant previous surgery/procedure and date(s) (H/O colonoscopy Hx of blepharoplasty S/P KWAKU (total abdominal hysterectomy)) Allergies: Allergies Allergy/AdvReac Type Severity Reaction Status Date / Time No Known Allergies Allergy Verified 12/16/22 08:42 Review of Systems Sugical H&P ROS: Negative: Constitution, Cardiovascular, Respiratory and Gastrointestinal Exam Surgical H&P Exam: Normal: Heart, Normal: Lungs, Normal: Extremities and Normal: Abdomen Plan Diagnosis/Plan: Unchanged I have reviewed the history and physical and performed a pertinent physical examination on my patient. No changes have occurred unless specified. Time Spent With Patient Time: Total time managing care of this patient today ____ minutes.
--- NOTE | 2023-03-07 08:19 | P.CONAN_ITS ---
HPI - Anesthesia Eval Consult details Narrative: Colonic Surveillance [facility] Active Problems Active Problems: All Active Problems (Updated 11/15/22 @ 09:28 by Katelyn Heart MD) Abnormal colonoscopy (Acute) Varicose veins of left lower extremity with inflammation (Acute) Varicose veins of right lower extremity with inflammation (Acute) Dysuria (Acute) Osteopenia (Acute) Hyperglycemia (Acute) Hyperlipidemia (Acute) HTN (hypertension) (Acute) Past Medical History Medical History Dysuria HTN (hypertension) Hyperglycemia Hyperlipidemia Osteopenia Thyroid nodule Family History Family History Father Stroke Mother No problems noted. Family history of problems with anesthesia: No Surgical History Surgical History H/O colonoscopy History of surgery Hx of blepharoplasty Hx of vein stripping S/P KWAKU (total abdominal hysterectomy) History of Problems with Anesthesia: No Social History Social History Household Members: Spouse Housing: House Are you a primary patient care coordinator to a significant other at home: No Do you presently have visiting nurse or other home services: No Alcohol intake: current Alcohol intake frequency: does not drink Patient Tobacco Use Status: Never used Tobacco e-Cigarette/Vaping Use: Never Used Use of substances other than those prescribed or required for medical reasons: No Have you been hit, kicked, punched, or otherwise hurt by someone within the past year? If so, by whom?: No Are you DNR?: No Advance Directives: No ( is primary contact) Advance Directives Information Provided: Yes (brochure mailed) Advance Directives on File: No Recently lost weight without trying: No Eating poorly because of decreased appetite: No Nutrition Risks: Surgical patient >75years Poor oral hygiene: No (partial denture) Current occupational status: retired Cognitive needs: No Hearing needs: No Vision needs: Yes Meds Allergies Allergy/AdvReac Type Severity Reaction Status Date / Time No Known Allergies Allergy Verified 12/16/22 08:42 Active Medications: Current Medications Lactated Ringer's (Lr) 1,000 mls @ 100 mls/hr IVCONT .Q10H KO Last Admin: 03/07/23 07:43 Dose: 100 mls/hr Home Medications Medication Instructions Recorded Confirmed Last Taken Type omega 8-xhe-qnt-fish oil 60 mg-90 1 cap PO DAILY 08/23/22 03/02/23 08/09/22 Hi story mg-500 mg capsule (Fish Oil) Exam Exam Date and Time: March 07, 2023 0819 Height,Weight and Vital Signs: Height 5 ft 5 in Weight 83.007 kg Last Vital Signs Temp 97.2 F 03/07/23 07:22 Pulse 69 03/07/23 07:22 Resp 18 03/07/23 07:22 BP 177/67 H 03/07/23 07:22 Pulse Ox 98 03/07/23 07:22 O2 Del Method Room Air 03/07/23 07:22 Airway Mallampati Class: II TM Dist: >3cm Denture: Upper and Lower Loose/Missing/Broken Teeth: Yes Heart: rrr+[id number] Lungs: cta b/l Assessment and Plan Assessment Anesthesia Assessment: Anesthesia Plan Discussed and Chart Reviewed Final Anesthetic Review Family History of Problems with Anesthesia: No History of Problems with Anesthesia: No NPO: Yes ASA Class: III Final Preanesthetic Review: No Changes in Pt Med Stat, Meds/Allgs Chart Reviewed, Consent Obtained/Reviewed and Anes Risks/Benef Reviewed Patient Risk: Intermediate Procedure Risk: Intermediate Assessment/Block/Sedation in SS: Assess/Block/Sedation-SS Anesthetic Plan Anesthetic Plan: MAC: and Agree w/ Assess. and Plan Disposition: Standard PACU
--- NOTE | 2023-03-07 08:27 | P.OP_ITS ---
Operative Note Operative Note Date of Service: 03/07/23 Narrative: COLONOSCOPY TILL CECUM WITH BIOPSIES, SNARE POLYPECTOMY AND SUBMUCOSAL INJECTION Pre-op diagnosis: Colon cancer screening, history of colon polyps Post-op diagnosis:? Colon polyps, diverticulosis, hemorrhoids Endoscopist:? Lela King MD Anesthesia:?MAC Consent: Indications for the procedure and potential complications of bleeding, perforation, reaction to medications and missed diagnosis were discussed with the patient and informed consent was obtained. Instrument: Olympus PCF H 190 L variable stiffness pediatric colonoscope Monitoring: Vital signs and clinical assessment, intermittent blood pressure monitoring, continuous EKG monitoring, Pulse oximetry and Carbon Dioxide monitoring were done throughout the procedure. Please see anesthesia flowsheet. Colon withdrawl time was 22 minutes. Procedure: The patient was placed in the left lateral decubitis position and pre-procedure medications were administered. After a digital rectal examination of the ano-rectum, the video colonoscope was inserted into the rectum and advanced through the colon to the cecum. The colonoscope was slowly withdrawn in a retrograde panoramic fashion and the colon mucosa was carefully examined including a retroflexed view of the rectum. Findings and interventions are described below. Procedure Difficulty: Without difficulty Findings: Terminal Ileum: Not evaluated Cecum: A 2-3 mm sessile polyp removed with a cold bx. A 12-15 mm sessile polyp - raised with 5 cc of normal saline and removed with a hot snare Ascending Colon: Two 10-12 mm sessile polyps - removed with a hot snare Transverse Colon: A 15 to 18 mm sessile polyp at 90 cms - removed with a hot snare Descending Colon: Moderate diverticulosis Sigmoid Colon: Severe diverticulosis with luminal narrowing Rectum: Normal Ano-rectum: Moderate internal hemorrhoids Colon preparation: Good after some irrigation Impression and Post Procedure Diagnosis: Colonoscopy Findings: Four medium sized and one small polyps removed Moderate to severe diverticulosis seen in the left colon Moderate hemorrhoids on retroflexed exam. Plan: I will send a letter with pathology results Repeat Colonoscopy interval based on path results - in 3 years if polyps are a denomatous and 5 years if polyps are hyperplastic (due to a hx of adenomatous colon polyps). Above findings were reviewed with the patient and colon polyps and diverticulosis handouts were given in the discharge area
[2023-03-07 09:15] VITALS: BP 125/69; PULSE 59; RESP 18; TEMP 36.4; O2SAT 99
[2023-03-07 09:42] VITALS: BP 143/60; PULSE 61; RESP 18; TEMP 36.1; O2SAT 99
== END 2023-03-07 09:58 | disposition home or self-care (01) ==
PROVIDERS: PCP Internal Medicine; Visit Provider Internal Medicine Gastroenterology
PROC: 0DJD8ZZ Inspection of Lower Intestinal Tract, Via Natural or Artificial Opening Endoscopic (ICD-10-PCS; CPT 45378; principal; 2023-03-07 08:30)
DX: Z12.11 Encounter for screening for malignant neoplasm of colon (principal); Z86.010 Personal history of colon polyps; D12.0 Benign neoplasm of cecum; D12.2 Benign neoplasm of ascending colon; D12.3 Benign neoplasm of transverse colon; K57.30 Diverticulosis of large intestine without perforation or abscess without bleeding; K64.8 Other hemorrhoids; I10 Essential (primary) hypertension; E78.5 Hyperlipidemia, unspecified; R73.9 Hyperglycemia, unspecified; M85.80 Other specified disorders of bone density and structure, unspecified site; E04.1 Nontoxic single thyroid nodule; Z79.899 Other long term (current) drug therapy
CPT/HCPCS: 45385; 45380; 45381; 88305

== ENCOUNTER → 2023-03-07 06:41 | Outpatient (BNV) | payer MEDICARE, SELFPAY | PROVIDERS: PCP Internal Medicine; Visit Provider Internal Medicine Gastroenterology | DX: Z12.11 Encounter for screening for malignant neoplasm of colon (principal); Z86.010 Personal history of colon polyps; K57.30 Diverticulosis of large intestine without perforation or abscess without bleeding; K64.8 Other hemorrhoids; D12.0 Benign neoplasm of cecum; D12.2 Benign neoplasm of ascending colon; D12.3 Benign neoplasm of transverse colon | CPT/HCPCS: 45380; 45381; 45385 ==

== ENCOUNTER 2023-03-30 12:36 | Outpatient (AMB) | payer MEDICARE, SELFPAY ==
[2023-03-30 13:12] VITALS: BP 142/80; PULSE 74; TEMP 37.1; O2SAT 98; BMI 30.6
--- NOTE | 2023-03-30 13:12 | AM.OFFWIN_ITS ---
Intake Vital Signs 03/30/23 13:12 Height 5 ft 5 in Weight 184 lb BMI 30.6 BP 142/80 H Blood Pressure Location Lt brachial Position Sitting Pulse 74 Pulse Source Pulse Oximeter Temp 98.7 F Temp Source Temporal Artery Scan Pulse Oximetry (%) 98 Intake Visit Reasons: c/o possible bug bite Intake Note: pt is here for c/o bug bite on lower abd Patient Tobacco Use Status: Never used Tobacco Allergies No Known Allergies Allergy (Verified 03/30/23 13:50) Medication List - Last Reconciled 03/30/23 by Bhupinder Camacho MD amlodipine 5 mg PO BID fluticasone propionate 50 mcg/actuation 1 spray intranasal DAILY metoprolol succinate ER 50 mg PO DAILY omega 3-lau-wvi-fish oil 60-90-500 mg (Fish Oil) 1 cap PO DAILY pravastatin 40 mg PO BEDTIME triamterene-hydrochlorothiazid 37.5-25 mg 1 tab PO DAILY HPI c/o possible bug bite HPI Details 77-year-old female presents to the office for a sick visit. Patient reports working in the garden and then developing a rash on the left side of her groin. Predominant symptom is itching. PFSH Medical History Dysuria HTN (hypertension) Hyperglycemia Hyperlipidemia Osteopenia Thyroid nodule Surgical History H/O colonoscopy History of surgery Hx of blepharoplasty Hx of vein stripping S/P KWAKU (total abdominal hysterectomy) Family History Father Stroke Mother No problems noted. Social History Household Members: Spouse Housing: House Are you a primary career development counselor to a significant other at home: No Do you presently have visiting nurse or other home services: No Alcohol intake: current Alcohol intake frequency: does not drink Patient Tobacco Use Status: Never used Tobacco e-Cigarette/Vaping Use: Never Used Current occupational status: retired Cognitive needs: No Hearing needs: No Vision needs: Yes Physical Exam Vital Signs: Last Vital Signs Temp 98.7 F 03/30/23 13:12 Pulse 74 03/30/23 13:12 BP 142/80 H 03/30/23 13:12 Pulse Ox 98 03/30/23 13:12 BMI result Body Mass Index 30.6 Skin Other: Erythematous rash along the T9 dermatome. Vesicular rash. Assessment & Plan Assessment & Plan (1) Herpes zoster: Code(s): B02.9 - Zoster without complications Plan: Patient was not willing to believes the diagnosis of herpes zoster. She reports she has had shingles vaccine in the past. Also she does not pain as the pre senting complaint. The rash is vesicular and confined to a dermatome. I informed her should the lesion get worse, to come back for treatment of herpes zoster. Prednisone has been provided for 3 days. She believes it is due to contact dermatitis. Coding Level of Care Code Est Pt Level 4 (26156) Diagnoses Herpes zoster B02.9
== END 2023-03-30 14:12 | disposition home or self-care (01) ==
PROVIDERS: PCP Internal Medicine; Visit Provider Internal Medicine
DX: B02.9 Zoster without complications (principal)
CPT/HCPCS: 99214

== ENCOUNTER 2023-05-03 09:06 | Outpatient (AMB) | payer MEDICARE, SELFPAY ==
--- NOTE | 2023-05-03 09:09 | MHC.OFFVIS ---
Intake Intake Visit Reasons: 6 month leg check Intake Note: pt here for 2 month leg check pt says shes still having trouble with swelling and pain in the mornings Allergies No Known Allergies Allergy (Verified 05/03/23 09:10) HPI 6 month leg check HPI Details Very pleasant 77-year-old female presents for re-evaluation regarding her varicose veins she had undergone previous left lower extremity microphlebectomy. She appears to be fairly satisfied with that. She has some varicosities on the right side which are not such discomfort for her at the current time. Appears to be doing relatively stable with that. Compression appears to be helping. She now presents for routine follow-up. PFSH Medical History Dysuria HTN (hypertension) Hyperglycemia Hyperlipidemia Osteopenia Thyroid nodule Surgical History H/O colonoscopy History of surgery Hx of blepharoplasty Hx of vein stripping S/P KWAKU (total abdominal hysterectomy) Family History Father Stroke Mother No problems noted. Social History Household Members: Spouse Housing: House Are you a primary caregiver assisted living to a significant other at home: No Do you presently have visiting nurse or other home services: No Alcohol intake: current Alcohol intake frequency: does not drink Patient Tobacco Use Status: Never used Tobacco e-Cigarette/Vaping Use: Never Used Current occupational status: retired Cognitive needs: No Hearing needs: No Vision needs: Yes Review of Systems Const Reports as per HPI ENT Reports no additional complaints Card Denies chest pain, Denies chest pain at rest and Denies chest pain with activity Resp Denies chest congestion and Denies cough GI Reports no additional complaints Musc Details: pain over varicosities, aching of lower extremities, swelling, cramping, heaviness and tiredness, itching Denies abnormal gait Skin/Breast Reports pruritus and Denies wounds Neuro Reports no additional complaints and Denies abnormal gait Psych Denies no additional complaints Physical Exam Const General: cooperative, healthy appearing and comfortable Orientation/consciousness: oriented to person, oriented to place and oriented to time Neck Carotids: no bruits Chest Chest palpation & inspection: normal inspection of the chest and normal palpation of entire chest wall Resp Effort & Inspection: normal respiratory effort and able to speak in complete sentences Cardio Rate: regular rate Heart sounds: S1 normal heart sound present and S2 normal heart sound present Peripheral pulses: Peripheral pulses 2+ throughout GI Inspection: Yes normal to inspection Skin Other: +2 edema, large rope-like varicosities greater than 4 mm right calf and thigh General skin exam: dry skin Neuro General: oriented to person, oriented to place and oriented to time Extrem Right lower extremity: full ROM, normal capillary refill and edema Left lower extremity: full ROM, normal capillary refill and edema Psych Mental Status: mental status grossly normal Assessment & Plan Assessment & Plan (1) Varicose veins of right lower extremity with inflammation: Code(s): I83.11 - Varicose veins of right lower extremity with inflammation Plan: The patient does have some right lower extremity varicosities which do not appear to be a source of discomfort for her right now. I did request that should they become a problem for her in the future to reach out to our office and would be happy to schedule her for additional treatments regarding the right ear lower extremity. Thank you for allowing us to assist in her care. If there are questions or concerns please do not hesitate to contact us (2) Varicose veins of left lower extremity with inflammation: Comment: 08/23/2022 - left leg microphlebectomy Code(s): I83.12 - Varicose veins of left lower extremity with inflammation Plan: The patient has done extremely well with all venous treatments. Patient's may often experience postprocedure phlebitic episodes and I have discussed with the patient use of warm compresses and NSAIDS if tolerated for pain discomfort. In addition, I have discussed continued conservative measures including use of compression, leg elevation, and exercise. The patient was also given an information sheet regarding appropriate use of compression stockings and future purchases. Thank you for allowing us to care for your patient with venous disease. Coding Level of Care Code Est Pt Level 3 (75379) Diagnoses Varicose veins of right lower extremity with inflammation I83.11 Varicose veins of left lower extremity with inflammation I83.12
== END 2023-05-03 09:55 | disposition home or self-care (01) ==
PROVIDERS: Visit Provider Surgery Vascular Surgery
DX: I83.11 Varicose veins of right lower extremity with inflammation (principal); I83.12 Varicose veins of left lower extremity with inflammation
CPT/HCPCS: 99213

== ENCOUNTER → 2023-05-03 09:06 | Outpatient (BNVA) | payer MEDICARE, SELFPAY | PROVIDERS: Visit Provider Surgery Vascular Surgery | DX: I83.11 Varicose veins of right lower extremity with inflammation (principal); I83.12 Varicose veins of left lower extremity with inflammation | CPT/HCPCS: 99212 ==

== ENCOUNTER 2023-06-07 07:28 | Outpatient (REF) | payer MEDICARE, SELFPAY ==
[2023-06-07 07:46] LABS: MANUAL DIFF FLAG NO
[2023-06-07 08:25] LABS: Basophils Absolute Auto 0.1 X10*3/uL (0.0-0.2); Basophils Percent Auto 0.6 % (0-2); Eosinophils Absolute Auto 0.3 X10*3/uL (0.0-0.4); Eosinophils Percent Auto 3.8 % (0-4); Hematocrit 39.6 % (37.0-47.0); Imm Gran Abs Auto 0.03 X10*3/uL (0.00-0.03); Imm Gran Pct Auto 0.4 % (0.0-0.4); Lymphocytes Absolute Auto 3.5 X10*3/uL (1.2-4.9); Lymphocytes Percent Auto 41.3 % (20-40); Mean Corpuscular HGB Conc 32.8 g/dl (31.0-35.0); Mean Corpuscular Volume 88.4 fL (80.0-98.0); Mean Platelet Volume 11.7 fL (9.4-12.3); Monocytes Absolute Auto 0.7 X10*3/uL (0.1-1.2); Monocytes Percent Auto 7.7 % (2-11); Neutrophils Absolute Auto 3.9 x10*3/uL (2.0-8.3); Neutrophils Percent Auto 46.2 % (45-73); Platelet Count 225 X10*3/uL (160-400); Red Blood Count 4.48 X10*6/uL (4.20-5.50); Red Cell Distribution Width 13.1 % (11.0-16.0); White Blood Count 8.5 X10*3/uL (4.8-10.8)
[2023-06-07 08:35] LABS: Estimated Average Glucose 123 mg/dL; Hemoglobin A1c % 5.9 % (<6.0)
[2023-06-07 09:00] LABS: Alanine Aminotransferase 20 U/L (0-31); Albumin Level 4.1 g/dL (3.5-5.0); Alkaline Phosphatase 60 U/L (39-117); Anion Gap 13 (12-20); Aspartate Amino Transferase 20 U/L (5-31); Bilirubin Total 0.6 mg/dL (0.0-1.0); Blood Urea Nitrogen 13 mg/dL (9-16); Calcium 9.5 mg/dL (8.4-10.2); Carbon Dioxide 31 mmol/L (22-29); Chloride 104 mmol/L (96-108); Cholesterol 198 mg/dL (<200); Estimated Glomerular Filt Rate > 60; Glucose Fasting 120 mg/dL (60-99); HDL Cholesterol 43 mg/dL (>40); LDL Cholesterol Calculated 120 mg/dL (<100); Potassium 3.7 mmol/L (3.3-5.1); Sodium 144 mmol/L (135-145); Triglycerides 175 mg/dL (<150)
== END 2023-06-07 07:29 | disposition home or self-care (01) ==
LOC: HO.LAB 07:28
PROVIDERS: PCP Internal Medicine; Visit Provider Internal Medicine
DX: R73.9 Hyperglycemia, unspecified (principal); I10 Essential (primary) hypertension; E78.5 Hyperlipidemia, unspecified
CPT/HCPCS: 36415; 80053; 80061; 83036; 85025

== ENCOUNTER 2023-06-10 08:20 | Outpatient (AMB) | payer MEDICARE, SELFPAY ==
--- NOTE | 2023-06-10 08:22 | MHC.PC.OV ---
Vital Signs 06/10/23 08:24 Height 5 ft 5 in Weight 181 lb BMI 30.1 BP 120/70 Blood Pressure Location Rt brachial Position Sitting Pulse 68 Pulse Source Pulse Oximeter Pulse Oximetry (%) 98 Oxygen Delivery Method Room Air Intake Visit Reasons: PE Intake Note: Pt is here today for her PE Allergies No Known Allergies Allergy (Verified 06/10/23 08:24) Medication List - Last Reconciled 06/10/23 by Katelyn Heart MD amlodipine 5 mg PO BID fluticasone propionate 50 mcg/actuation 1 spray intranasal DAILY metoprolol succinate ER 50 mg PO DAILY omega 8-dfs-xxl-fish oil 60-90-500 mg (Fish Oil) 1 cap PO DAILY pravastatin 40 mg PO BEDTIME triamterene-hydrochlorothiazid 37.5-25 mg 1 tab PO DAILY Tobacco use date assessed: 06/10/23 Fall risk assessment: No Falls in past year Last assessed Fall Risk: 06/10/23 Dental Screening Dental Screen Date: 06/10/23 Did you have a dental visit in the last 12 months?: Yes Did you have a dental problem in the last 6 months where you did not have access to dental care?: No Was dental information given to patient?: Patient has dentist HPI PE HPI Details Pt presents for PE. PFSH Medical History Dysuria Osteopenia Hyperglycemia Thyroid nodule Hyperlipidemia HTN (hypertension) Surgical History History of surgery Hx of vein stripping Hx of blepharoplasty H/O colonoscopy S/P KWAKU (total abdominal hysterectomy) Family History Father Stroke Mother No problems noted. Social History Household Members: Spouse Housing: House Are you a primary nursing care partner to a significant other at home: No Do you presently have visiting nurse or other home services: No Alcohol intake: current Alcohol intake frequency: does not drink Patient Tobacco Use Status: Never used Tobacco e-Cigarette/Vaping Use: Never Used Current occupational status: retired Cognitive needs: No Hearing needs: No Vision needs: Yes Questionnaire PHQ-9 Over the last 2 weeks, how often have you been bothered by any of the following problems? 1. Little interest or pleasure in doing things: not at all 2. Feeling down, depressed, or hopeless: not at all 3. Trouble falling or staying asleep, or sleeping too much: several days 4. Feeling tired or having little energy: several days 5. Poor appetite or overeating: not at all 6. Feeling bad about yourself - or that you are a failure or have let yourself or your family down: not at all 7. Trouble concentrating on things, such as reading the newspaper or watching television: not at all 8. Moving or speaking so slowly that other people could have noticed. Or the opposite - being so fidgety or restless that you have been moving around a lot more than usual: not at all 9. Thoughts that you would be better off or of hurting yourself in some way: not at all Total score: 2 Depression Screening Interpretation: Negative Depression Screening Done: Yes Source: Developed by Drs. Christiano Natarajan, Anita De, Jose Antonio Bryant and colleagues, with an educational carlton from [employer]. Thrive Questionnaire Date Thrive assessed: 06/10/23 I am a: Patient What is your living situation today?: I have a steady place to live Within the past 12 months, did the food you bought not last and you didn't have the money to get more?: Never true Within the past 12 months, did you worry whether your food would run out before you got money to buy more?: Never true Do you have trouble paying for medicines?: No Do you have trouble getting transportation to medical appointments?: No Do you have trouble paying your heating and electricity bill?: No Do you have trouble taking care of your child, family member or friend?: No Do you have trouble with day-to-day activities such as bathing, preparing meals, shopping, managing finances, etc.?: No Are you currently unemployed and looking for a job?: No Are you interested in more education?: No AUDIT C Alcohol Use Questionnaire (AUDIT-C) 1. How often do you have a drink containing alcohol?: 2-4 times a month 2. How many drinks containing alcohol do you have on a typical day when you are drinking?: 1 or 2 3. How often do you have six or more drinks on one occasion?: Never Total Score: 2 ANASTASIA-7 AMB Questionnaire ANASTASIA-7 Date ANASTASIA - 7 assessed: 06/10/23 Feeling nervous, anxious, or on edge: 1 = Several days Not being able to stop or control worryin = Several days Worrying too much about different things: 1 = Several days Trouble relaxin = Not at all Being so restless that it is hard to sit still: 0 = Not at all Becoming easily annoyed or irritable: 1 = Several days Feeling afraid as if something awful might happen: 1 = Several days Total ANASTASIA-7 score (0-4 normal; 5-9 mild; 10-14 moderate; 15-21 severe): 5 Source: Developed by Drs. Christiano Natarajan, Anita De, Jose Antonio Bryant and colleagues, with an educational carlton from [employer]. Review of Systems Const All systems reviewed & are unremarkable except as noted in HPI and below Reports no additional complaints Eyes Reports no additional complaints ENT Reports no additional complaints Card Reports no additional complaints Resp Reports no additional complaints GI Reports no additional complaints Reports no additional complaints Physical exam (Primary Care) Vital Signs: Last Vital Signs Pulse 68 06/10/23 08:24 BP 144/60 H 06/10/23 08:24 Pulse Ox 98 06/10/23 08:24 Oxygen Delivery Method Room Air 06/10/23 08:24 BMI result Body Mass Index 30.1 Tobacco/Smoking Status: Tobacco use Status Tobacco use date assessed 06/10/23 06/10/23 08:28 Patient Tobacco Use Status Never used Tobacco 06/10/23 08:24 e-Cigarette/Vaping Use Never Used 06/10/23 08:24 PHQ-9: PHQ-9 Score PHQ-9: Total score 2 06/10/23 08:31 Depression Screening Interpretation: Negative Thrive Assessment: Date of Thrive Assessment Date Thrive assessed 06/10/23 06/10/23 08:31 Const General: no acute distress HENMT Head: Yes normal to inspection Ears: hearing grossly normal bilaterally General nose exam: Normal external nose present Mouth: Normal oral and palatal mucosa present Throat: Yes posterior oropharynx normal Eyes General: appearance normal, both eyes and all related structures Neck Neck: Yes no lymphadenopathy and Yes supple Resp Effort & Inspection: normal respiratory effort Auscultation: clear to auscultation bilaterally Cardio Rhythm: regular rhythm Heart sounds: S1 normal heart sound present and S2 normal heart sound present GI Inspection: Yes normal to inspection Palpation (GI): Soft to palpation Percussion: Yes normal to percussion Auscultation: normal bowel sounds Extrem General: Yes no clubbing, cyanosis or edema Assessment and Plan Assessment & Plan (1) Hyperglycemia: Comment: A1C 6.1 06/21, A1C 5.9 10/21 Code(s): R73.9 - Hyperglycemia, unspecified Plan: A1c is 5.9, continue ADA diet regular exercise and weight loss (2) Hyperlipidemia: Code(s): E78.5 - Hyperlipidemia, unspecified Plan: Continue statin (3) HTN (hypertension): Code(s): I10 - Essential (primary) hypertension Plan: Continue current medications (4) Osteopenia: Comment: DEXA 04/2020 Code(s): M85.80 - Other specified disorders of bone density and structure, unspecified site Plan: Continue vitamin-D and regular exercise (5) Annual physical exam: Code(s): Z00.00 - Encounter for general adult medical examination without abnormal findings Plan: Well-balanced diet regular physical activity discussed with the patient,follow-up in 6 months with a fasting labs before (6) Vitamin D deficiency: Code(s): E55.9 - Vitamin D deficiency, unspecified Orders: Orders Lipid Panel 6 Months E55.9 - Vitamin D deficiency, unspecified, E78.5 - Hyperlipidemia, unspecified, I10 - Essential (primary) hypertension, R73.9 - Hyperglycemia, unspecified, Z00.00 - Encounter for general adult medical examination without abnormal findings Complete Blood Count Auto Diff 6 Months E55.9 - Vitamin D deficiency, unspecified, E78.5 - Hyperlipidemia, unspecified, I10 - Essential (primary) hypertension, R73.9 - Hyperglycemia, unspecified, Z00.00 - Encounter for general adult medical examination without abnormal findings Comprehensive [place]. Panel Fast 6 Months E55.9 - Vitamin D deficiency, unspecified, E78.5 - Hyperlipidemia, unspecified, I10 - Essential (primary) hypertension, R73.9 - Hyperglycemia, unspecified, Z00.00 - Encounter for general adult medical examination without abnormal findings Hemoglobin A1c 6 Months E55.9 - Vitamin D deficiency, unspecified, E78.5 - Hyperlipidemia, unspecified, I10 - Essential (primary) hypertension, R73.9 - Hyperglycemia, unspecified, Z00.00 - Encounter for general adult medical examination without abnormal findings Vitamin D 25-OH Total 6 Months E55.9 - Vitamin D deficiency, unspecified, E78.5 - Hyperlipidemia, unspecified, I10 - Essential (primary) hypertension, R73.9 - Hyperglycemia, unspecified, Z00.00 - Encounter for general adult medical examination without abnormal findings Coding Level of Care Code Est Pt Prev Care >65y(79136) Diagnoses Hyperglycemia R73.9 Hyperlipidemia E78.5 HTN (hypertension) I10 Osteopenia M85.80 Annual physical exam Z00.00 Vitamin D deficiency E55.9
[2023-06-10 08:24] VITALS: BP 120/70; PULSE 68; O2SAT 98; BMI 30.1
== END 2023-06-10 09:08 | disposition home or self-care (01) ==
PROVIDERS: Visit Provider Internal Medicine
DX: R73.9 Hyperglycemia, unspecified (principal); E78.5 Hyperlipidemia, unspecified; I10 Essential (primary) hypertension; M85.80 Other specified disorders of bone density and structure, unspecified site; Z00.00 Encounter for general adult medical examination without abnormal findings; E55.9 Vitamin D deficiency, unspecified
CPT/HCPCS: 99397

== ENCOUNTER 2023-08-19 07:50 | Outpatient (REF) | payer MEDICARE, SELFPAY ==
--- NOTE | ~2023-08-19 | MM_ITS ---
EXAMINATION: MM SCREENING DIGITAL BREAST TOMOSYNTHESIS, BILATERAL CLINICAL INFORMATION: Screening. Asymptomatic. COMPARISON: Mammography: This study is compared with prior exams dating back to 2018. TECHNIQUE: Digital breast tomosynthesis is performed in both the craniocaudal and mediolateral oblique views along with computer-aided detection (CAD). Synthesized 2D images are generated from the tomosynthesis. FINDINGS: There are scattered areas of fibroglandular density (ACR BI-RADS breast composition Category b). In the 12:00 position of the left breast, at a middle depth, there is a focal asymmetry which warrants additional mammographic and targeted sonographic evaluation. At the time the sonographic evaluation, sonography of the left axilla should also be performed. In the right breast, there are no significant masses, abnormal calcifications, or other abnormalities. Few, unchanged, benign secretory calcifications are present in each breast. MM/MM tomosynthesis screening BI IMPRESSION: Focal asymmetry of the left breast warrants additional mammographic and targeted sonographic evaluation. Left axillary sonography should be added to this sonographic evaluation. No mammographic signs of malignancy right breast. Bilateral benign calcifications. ASSESSMENT: BI-RADS BI-RADS 0 - Incomplete: Needs additional Imaging. RECOMMENDATION: 1. Additional views of the left breast 2. Targeted ultrasound 3. Radiology department staff will contact the patient for additional imaging. Additional Imaging required This examination should not preclude the clinical evaluation of a suspicious palpable abnormality. This patient's information was entered into a reminder system with a target due date for their next mammogram.
== END 2023-08-19 07:51 | disposition home or self-care (01) ==
LOC: HO.MAMMO 07:50
PROVIDERS: PCP Internal Medicine; Visit Provider Internal Medicine
DX: Z12.31 Encounter for screening mammogram for malignant neoplasm of breast (principal)
CPT/HCPCS: 77063; 77067

== ENCOUNTER → 2023-08-19 08:15 | Outpatient (BNV) | payer MEDICARE, SELFPAY | PROVIDERS: PCP Internal Medicine; Visit Provider Radiology Diagnostic Radiology | DX: Z12.31 Encounter for screening mammogram for malignant neoplasm of breast (principal) | CPT/HCPCS: 77063; 77067 ==

== ENCOUNTER 2023-08-31 14:15 | Outpatient (REF) | payer MEDICARE, SELFPAY ==
--- NOTE | ~2023-08-31 | MM_ITS ---
EXAMINATION: MM DIAGNOSTIC DIGITAL BREAST TOMOSYNTHESIS, LEFT US BREAST LIMITED, LEFT MAMMOGRAPHY: CLINICAL INFORMATION: Diagnostic follow-up of dense irregular left breast mass at the 12:00 axis, posterior one third seen on screening exam. COMPARISON: Mammography: 08/19/2023, 07/27/2022, 07/13/2021, 06/20/2020, and exams dating back to 10/19/2013. TECHNIQUE: Digital breast tomosynthesis is performed in the following views: Full-field left 3-D mediolateral view, 3-D spot compression left CC and MLO views. FINDINGS: There are scattered areas of fibroglandular density (ACR BI-RADS breast composition Category b). In the 12:00 axis, posterior one third, there is an irregular, dense, poorly circumscribed spiculated mass measuring approximately 1.3 cm maximally, highly suspicious for a small breast cancer. This was not present on the previous years mammogram. There are otherwise no additional abnormalities noted throughout the left breast. There are benign skin lesions on the lateral and superior skin. No skin thickening, or retraction. No abnormal lymph nodes noted in the axilla. ULTRASOUND: CLINICAL INFORMATION: As above. Dense small spiculated mass 12:00 axis left breast posterior one third. COMPARISON: No prior ultrasound. Mammography performed concurrently. TECHNIQUE: Targeted sonographic evaluation left breast 12:00 axis was performed using a high frequency linear transducer. Selected archived documentation. FINDINGS: LEFT BREAST: -At the 12:00 axis, 8 cm from the nipple, there is a 1.0 x 0.8 x 0.9 cm hypoechoic irregular mass with angulated margins, and a halo of echogenic fat present. No posterior acoustic features evident. Minimal peripheral color Doppler signal seen on color Doppler interrogation. Finding is highly suspicious for a small carcinoma. Scanning of the left axilla demonstrates no evidence of abnormal lymph nodes or additional masses. MM/MM tomosynthesis added views L IMPRESSION: -Suspicious irregular mass 12:00 axis left breast, 8 cm from the nipple, measuring up to 1.1 cm sonographically, for which ultrasound-guided biopsy is recommended. -No evidence of abnormal lymphadenopathy left axilla. -Findings and recommendations were discussed with the patient in detail. OVERALL ASSESSMENT: Mammography: BI-RADS 4 - Suspicious finding Ultrasound: BI-RADS 4 - Suspicious finding RECOMMENDATION: Biopsy recommended
== END 2023-08-31 14:16 | disposition home or self-care (01) ==
LOC: HO.MAMMO 14:15
PROVIDERS: PCP Internal Medicine; Visit Provider Internal Medicine
DX: N64.89 Other specified disorders of breast (principal)
CPT/HCPCS: 76642; 77061; 77065

== ENCOUNTER → 2023-08-31 14:30 | Outpatient (BNV) | payer MEDICARE, SELFPAY | PROVIDERS: PCP Internal Medicine; Visit Provider Radiology Diagnostic Radiology | DX: R92.8 Other abnormal and inconclusive findings on diagnostic imaging of breast (principal) | CPT/HCPCS: 76642; 77065; G0279 ==

== ENCOUNTER 2023-09-02 10:18 | Outpatient (AMB) | payer MEDICARE, SELFPAY ==
--- NOTE | 2023-09-02 10:29 | A.OFFVIS_ITS ---
Intake Vital Signs 3 09/02/23 10:43 Height 5 ft 5 in Weight 187 lb 8 oz BMI 31.2 BP 162/70 H Blood Pressure Location Lt brachial Position Sitting Pulse 67 Intake Visit Reasons: Left breast US biopsy for 12 o'clock mass Intake Note: Patient is seen in office for ultrasound guided biopsy consult, left breast for 12 o'clock mass. Pt c/o: denies any concerns regarding the breast, no prior breast surgeries, yes to breast feeding with no complications us/mm:08/31/23 Bx sched: 09/05/23 Motor Adjuster Required: No Reaming Machine Operator For Plastic: Reaming Machine Operator For Plastic Present Accompanied by: Spouse Allergies No Known Allergies Allergy (Verified 09/02/23 10:38) HPI HPI Comments 2 History of Present Illness0 Details 77-year-old female patient presenting wi th a screening mammogram performed on 08/19/2023 with a subsequent additional images and ultrasound performed on 08/31/2023 which revealed a spiculated mass approximately 1.1 cm in diameter located in the 12 o'clock position approximately 8 cm from the nipple. This was new from her previous mammogram and felt to be suspicious for malignancy (BI-RADS 4). She is scheduled for an ultrasound-guided core biopsy on 09/05/2023. She denies a previous history of breast problems or breast surgery. Her family history is negative for breast cancer. She currently has no breast symptoms of pain, redness, nipple discharge, or palpable masses. She is and reports breast-feeding her children. [facility] Medical History Dysuria Osteopenia Hyperglycemia Thyroid nodule Hyperlipidemia HTN (hypertension) Surgical History History of surgery Hx of vein stripping Hx of blepharoplasty H/O colonoscopy S/P KWAKU (total abdominal hysterectomy) Family History Father Stroke Mother No problems noted. Social History Household Members: Spouse Housing: House Are you a primary youth care worker to a significant other at home: No Do you presently have visiting nurse or other home services: No Alcohol intake: current Alcohol intake frequency: does not drink Patient Tobacco Use Status: Never used Tobacco e-Cigarette/Vaping Use: Never Used Current occupational status: retired Cognitive needs: No Hearing needs: No Vision needs: Yes Female Reproductive History Menstrual Age of Menarche: 16 Age of menopause: 43 Total pregnancies: 4 Number of Living Children: 3 Ab spontaneous: 1 Review of Systems Const All systems reviewed & are unremarkable except as noted in HPI and below Denies chills, Denies fever(s), Denies headache(s), Denies poor appetite and Denies weakness ENT Denies headache(s) Card Denies chest pain, Denies irregular heart rhythm, Denies palpitations and Denies dyspnea Resp Denies cough, Denies excessive phlegm production and Denies dyspnea GI Denies abdominal pain, Denies bloating, Denies change in bowel habits, Denies constipation, Denies heartburn, Denies diarrhea, Denies nausea and Denies vomiting Denies urinary frequency and Denies nipple discharge Musc Denies back pain, Denies muscle weakness and Denies numbness Skin/Breast Denies breast swelling, Denies breast skin changes, Denies breast pain, Denies breast mass, Denies changing lesions, Denies nipple discharge and Denies unusual bruising Neuro Denies headache(s), Denies numbness, Denies paresthesias and Denies weakness Psych Denies anxiety and Denies depression Endo Denies palpitations Wilber/Lymph Denies lymphadenopathy Physical Exam Const General: cooperative and no acute distress Nutritional Appearance: well nourished Orientation/consciousness: patient oriented x3 Limitations: no limitations HEENT Head: Yes normocephalic and Yes atraumatic Ears: hearing grossly normal bilaterally Chest Other: Left breast: No skin change, no nipple retraction, no nipple discharge, no enlarged lymph nodes. Palpable mass is noted in the left breast at the 12 o'clock position approximately 8 cm from the nipple measuring approximately 1 cm in diameter, mobile within the breast tissue with no overlying skin change or fixation to the chest wall. Right breast: No skin change, no nipple retraction, no nipple discharge, no palpable mass, no enlarged lymph nodes Chest/axillae images: 2 1. Palpable mass corresponding to the mammographic findings. Resp Effort & Inspection: normal respiratory effort, no audible wheezes, no cough and no respiratory distress Cardio Jugular venous distension: no JVD GI Inspection: Yes normal to inspection Skin Other: Warm, dry, no rash Neuro General: patient oriented x3 Extrem General: Yes no clubbing, cyanosis or edema Assessment & Plan Assessment & Plan (1) Abnormal mammogram of left breast: Code(s): R92.8 - Other abnormal and inconclusive findings on diagnostic imaging of breast Plan 69-year-old female patient presenting with a recent mammogram revealing a spiculated density in the left breast at the 12 o'clock position confirmed by ultrasound felt to be suspicious for malignancy (BI-RADS 4). She denies a previous history of breast problems or breast surgery. Examination today does reveal a palpable mass corresponding to the finding on mammogram. She is scheduled for an ultrasound-guided core biopsy next week (09/05/2023). I recommended a follow-up appointment late next week to review the pathology results and discuss treatment options. She expressed understanding and agrees with the plan. Orders: Orders 2 US breast ndl core biopsy LT Today R92.8 - Other abnormal and inconclusive findings on diagnostic imaging of breast Medications: Discontinued 2 amlodipine Discontinued Reason: Patient Completed Course 5 mg PO BID 180 tabs 3RF fluticasone propionate 50 mcg/actuation administer into each nostril Discontinued Reason: Patient Completed Course 1 spray intranasal DAILY 16 grams 1RF Coding Level of Care Code New Pt Level 4 (71963) Diagnoses Abnormal mammogram of left breast R92.8
[2023-09-02 10:43] VITALS: BP 162/70; PULSE 67; BMI 31.2
== END 2023-09-02 10:58 | disposition home or self-care (01) ==
PROVIDERS: PCP Internal Medicine; Visit Provider Surgery
DX: R92.8 Other abnormal and inconclusive findings on diagnostic imaging of breast (principal)
CPT/HCPCS: 99204; 99214

== ENCOUNTER → 2023-09-02 10:18 | Outpatient (BNVA) | payer MEDICARE, SELFPAY | PROVIDERS: PCP Internal Medicine; Visit Provider Surgery | DX: R92.8 Other abnormal and inconclusive findings on diagnostic imaging of breast (principal) | CPT/HCPCS: 99202 ==

== ENCOUNTER 2023-09-05 07:42 | Outpatient (REF) | payer MEDICARE, SELFPAY ==
--- NOTE | ~2023-09-05 | MM_ITS ---
PROCEDURE: US GUIDED BREAST BIOPSY, LEFT CLINICAL INFORMATION: Irregular mass left breast 12:00 axis, 8 cm from the nipple, for which ultrasound-guided biopsy was recommended. COMPARISON: 08/31/2023. PROCEDURAL DETAILS: The details of the procedure, as well as the risks, benefits, and alternatives to the procedure were explained to the patient in detail and all of her questions were answered, after which written informed consent was obtained. Site and side were confirmed. Prior to the procedure, sonography revealed a hypoechoic irregular mass measuring 1.1 x 0.8 x 0.9 cm within the 12:00 axis of the left breast, 8 cm from the nipple.. A time-out was performed, the lesion intended for biopsy was targeted, and the skin of the overlying left breast was then marked, prepped and draped in the usual sterile fashion. Using sonographic guidance, sterile technique, and 1% lidocaine without epinephrine for local anesthesia, multiple core biopsies were obtained through the targeted area with a 14G spring loaded ADINCONera core biopsy device. There was real-time confirmation of appropriate needle passage. Sampling was documented. At the completion of tissue sampling, a single open coil metallic clip was deposited at the biopsy site. There was no evidence of immediate complication. SPECIMEN: 3 well formed core samples were obtained. DIGITAL POST-PROCEDURE MAMMOGRAPHY: Breast density: The tissue contains scattered areas of fibroglandular density. BI-RADS version 5, category B. There are no new mammographic findings demonstrated. The postprocedure 2-view direct digital mammogram reveals satisfactory and accurate positioning of the biopsy clip, lying directly adjacent to the index mass. No hematoma present. The patient tolerated the procedure well and, after assuring adequate hemostasis, was discharged in good condition after reviewing postbiopsy breast care instructions. Final pathology results are pending. MM/MM tomosynthesis diagnostic LT IMPRESSION: 1. No immediate complication from ultrasound-guided percutaneous biopsy left breast mass at the 12:00 axis. 2. Ultrasound was used to localize and guide marker clip placement. 3. The 2-view direct digital postprocedure mammogram reveals satisfactory positioning of the biopsy clip, touching the margin of the index mass. 4. Final pathology results are pending. A separate report with final recommendations will be issued once these results are made available.
[2023-09-05] MEDS: Sodium Bicarbonate 8.4% 50 MEQ/50 ML VIAL SUBCUT (09:06)
[2023-09-05] MEDS: Lidocaine HCl 1 % 20 ML VIAL 8 ML SUBCUT (09:06)
== END 2023-09-05 07:43 | disposition home or self-care (01) ==
LOC: HO.MAMMO 07:42
PROVIDERS: PCP Internal Medicine; Visit Provider Surgery
DX: R92.8 Other abnormal and inconclusive findings on diagnostic imaging of breast (principal); C50.812 Malignant neoplasm of overlapping sites of left female breast; Z17.1 Estrogen receptor negative status [ER-]
CPT/HCPCS: 19083; 77061; 77065; 88305; 88341; 88342; 88360; A4648; C1894

== ENCOUNTER → 2023-09-05 08:00 | Outpatient (BNV) | payer MEDICARE, SELFPAY | PROVIDERS: PCP Internal Medicine; Visit Provider Radiology Diagnostic Radiology | DX: C50.812 Malignant neoplasm of overlapping sites of left female breast (principal) | CPT/HCPCS: 19083; 77065 ==

== ENCOUNTER 2023-09-09 11:02 | Outpatient (AMB) | payer MEDICARE, SELFPAY ==
--- NOTE | 2023-09-09 11:04 | A.OFFVIS_ITS ---
Intake Intake Visit Reasons: S/p Left breast US biopsy for 12 o'clock mass Intake Note: Patient is seen in office for ultrasound biopsy results, left breast 12 o'clock mass. Pt c/o: denies any concerns, healing well, here for results Human Resources Hr Representative Required: No Accompanied by: Spouse Allergies No Known Allergies Allergy (Verified 09/09/23 11:11) Medication List - Last Reconciled 09/09/23 by Cheo Nash MD metoprolol succinate ER 50 mg PO DAILY omega 6-qxj-vts-fish oil 60-90-500 mg (Fish Oil) 1 cap PO DAILY pravastatin 40 mg PO BEDTIME triamterene-hydrochlorothiazid 37.5-25 mg 1 tab PO DAILY HPI HPI Comments History of Present Illness Details 77-year-old female patient returning 1 w [place] following an ultrasound-g uided core biopsy of a spiculated mass, 1.1 cm in diameter located at 12:00 o'clock position proximally 8 cm from the nipple in the left breast. This was identified on mammogram obtained on 08/19/2023 with subsequent images obtained on 08/31/2023 and felt to be high suspicion for malignancy (BI-RADS 4). She denies a previous history of breast problems or breast surgery. Her family history is negative for breast cancer. She is and breastfed her children. She tolerated the needle core biopsy well and denies any ongoing breast symptoms. 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 She tolerated the procedure well and denies any ongoing breast symptoms. A copy of the pathology report was provided to the patient and her today. They had previously reviewed the path report on the hospital portal. [facility] Medical History Dysuria Osteopenia Hyperglycemia Thyroid nodule Hyperlipidemia HTN (hypertension) Surgical History History of surgery Hx of vein stripping Hx of blepharoplasty H/O colonoscopy S/P KWAKU (total abdominal hysterectomy) Family History Father Stroke Mother No problems noted. Social History Household Members: Spouse Housing: House Are you a primary care consultant to a significant other at home: No Do you presently have visiting nurse or other home services: No Alcohol intake: current Alcohol intake frequency: does not drink Patient Tobacco Use Status: Never used Tobacco e-Cigarette/Vaping Use: Never Used Current occupational status: retired Cognitive needs: No Hearing needs: No Vision needs: Yes Female Reproductive History Menstrual Age of Menarche: 16 Review of Systems Const All systems reviewed & are unremarkable except as noted in HPI and below Denies chills, Denies fever(s), Denies headache(s), Denies poor appetite and Denies weakness ENT Denies headache(s) Card Denies chest pain, Denies irregular heart rhythm, Denies palpitations and Denies dyspnea Resp Denies cough, Denies excessive phlegm production and Denies dyspnea GI Denies abdominal pain, Denies bloating, Denies change in bowel habits, Denies constipation, Denies heartburn, Denies diarrhea, Denies nausea and Denies vomiting Denies urinary frequency and Denies nipple discharge Musc Denies back pain, Denies muscle weakness and Denies numbness Skin/Breast Denies breast swelling, Denies breast skin changes, Denies breast pain, Denies breast mass, Denies changing lesions, Denies nipple discharge and Denies unusual bruising Neuro Denies headache(s), Denies numbness, Denies paresthesias and Denies weakness Psych Denies anxiety and Denies depression Endo Denies palpitations Wilber/Lymph Denies lymphadenopathy Physical Exam Const General: cooperative and no acute distress Nutritional Appearance: well nourished Orientation/consciousness: patient oriented x3 Limitations: no limitations HEENT Head: Yes normocephalic and Yes atraumatic Ears: hearing grossly normal bilaterally Chest Other: Left breast: Biopsy site in the upper outer quadrant is clean, dry and intact with intact Steri-Strips. Minimal ecchymosis is noted below the biopsy site. Right breast: No skin change, no nipple retraction, no nipple discharge, no palpable mass, no enlarged lymph nodes Resp Effort & Inspection: normal respiratory effort, no audible wheezes, no cough and no respiratory distress Cardio Jugular venous distension: no JVD GI Inspection: Yes normal to inspection Skin Other: Warm, dry, no rash Neuro General: patient oriented x3 Extrem General: Yes no clubbing, cyanosis or edema Assessment & Plan Assessment & Plan (1) Invasive ductal carcinoma of left breast: Code(s): C50.912 - Malignant neoplasm of unspecified site of left female breast Plan 77-year-old female patient found to have a spiculated mass in the left breast on recent mammogram and ultrasound, returning status post ultrasound-guided core biopsy. Pathology report is not complete however patient is found to have a moderate to high-grade invasive ductal carcinoma, PA/HER2 Kerline negative and ER pending. The patient would be a reasonable candidate for lumpectomy and sentinel node biopsy however it is uncertain at this time if this is triple negative disease. Therefore I recommended evaluation by Medical Oncology prior to proceeding to surgery. If she has not a candidate for neoadjuvant treatment, we will proceed with lumpectomy and sentinel node biopsy. Orders: Referrals Hematology & Oncology Referral C50.912 - Malignant neoplasm of unspecified site of left female breast Coding Level of Care Code Est Pt Level 3 (59227) Diagnoses Invasive ductal carcinoma of left breast C50.912
== END 2023-09-09 11:27 | disposition home or self-care (01) ==
PROVIDERS: PCP Internal Medicine; Visit Provider Surgery
DX: C50.912 Malignant neoplasm of unspecified site of left female breast (principal)
CPT/HCPCS: 99213

== ENCOUNTER → 2023-09-09 11:02 | Outpatient (BNVA) | payer MEDICARE, SELFPAY | PROVIDERS: PCP Internal Medicine; Visit Provider Surgery | DX: C50.812 Malignant neoplasm of overlapping sites of left female breast (principal); I10 Essential (primary) hypertension | CPT/HCPCS: 99212 ==

== ENCOUNTER → 2023-09-22 07:48 | Outpatient (BNV) | payer MEDICARE, SELFPAY | PROVIDERS: PCP Internal Medicine; Referring Provider Surgery; Visit Provider Internal Medicine Medical Oncology | DX: C50.912 Malignant neoplasm of unspecified site of left female breast (principal) | CPT/HCPCS: 99204 ==

== ENCOUNTER → 2023-09-23 13:54 | Outpatient (REF) | payer MEDICARE, SELFPAY ==
--- NOTE | 2023-09-23 13:57 | CA_ITS ---
Transthoracic Echocardiogram Patient (Last, First, Middle): Nicolasa Mayo, Gender: Female Date of : 1945 Age: 77 Procedure Date: 09/23/2023 Procedure Type: Transthoracic Echocardiogram Location: OP Height: 165.1 cm Weight: 81.65 kg BSA: 1.89 m2 Heart Rate: 68 bpm BP: 165 / 70 mmHg City Clerk: MATHEUS Presley MD: Tawana Hernadez MD Foreman/Pile Driving And Erection: Denis Velazco MD Symptoms: Triple negative breast cancer, baseline echo before chemo Study Quality: Adequate ECG Rhythm: Sinus Conclusions: - 1. Normal LV systolic function with LVEF of 65-70% with grade 1 diastolic dysfunction 2. Trivial aortic regurgitation 3. Mildly dilated ascending aorta 3.9 cm 4. Normal RV systolic pressure 5. No gross pericardial effusion Findings Left Ventricle Normal left ventricular size, thickness, and systolic function. The visually estimated ejection fraction is between 65-70%. Spectral Doppler is indicative of an impaired relaxation filling pattern. E/E prime ratio is <8, consistent with normal filling pressures. Evidence suggests grade I (mild) diastolic dysfunction. Peak GLS is -21.1%, within normal limits. Right Ventricle Normal right ventricular cavity size and systolic function. Atria The left atrium is likely dilated. There is no evidence of interatrial shunt. The right atrium is normal in size. Aortic Valve Normal aortic valve structure and function. There is no aortic valve stenosis. There is trace (trivial) aortic valve regurgitation. Mitral Valve There is mild posterior mitral leaflet thickening. There is mild mitral annular calcification. There is trace mitral valve regurgitation. There is no mitral valve stenosis. Pulmonic Valve The pulmonic valve is likely normal. Tricuspid Valve Normal tricuspid valve structure. There is mild tricuspid valve regurgitation. The right ventricular systolic pressure is normal. The right ventricular systolic pressure is 30 mmHg. Normal right atrial pressure. There is no evidence of pulmonary hypertension. Great Vessels The pulmonary artery was not well visualized. There is mild dilatation of the ascending aorta measuring 3.90 cm. Venous The inferior vena cava is normal in size and collapses greater than 50% with inspiration. Pericardium/Pleural There is no evidence of pericardial effusion. Prior Study Comparison No prior study available for comparison. Measurements 2D Linear Measurements IVSd: 0.98 0.6-0.9/0.6-1.0 cm LVIDd: 3.23 3.9-5.3/4.2-5.9 cm LVIDd Index: 1.71 2.4-3.2/2.2-3.1 cm/m2 LVIDs: 1.83 2.0-3.6 cm LVPWd: 1.14 0.7-1.1 cm LA Diam: 3.30 2.7-3.8/3.0-4.0 cm LAIDs Index: 1.75 1.5-2.3 cm/m2 LV Mass: 124.57 67-162/88-224 g LV Mass Index: 65.91 43-95/49-115 g/m2 LVOT Diam: 1.90 3.0+(-)1.3 cm 2D Systolic Function EF 4C: 65.80 >55% EF 2C: 74.60 >55% EF BiP: 70.80 >55% Mitral Valve MV Pk E: 1.14 MV PK A: 0.89 MV Decel Time: 215.00 E/A: 1.30 E'Lateral: 9.03 E'Medial: 6.74 E/E' Med: 16.90 E/E' Lat: 12.60 PHT: 63.00 MVA PHT: 3.49 Decel Bee: 5.28 Aortic Valve AoV Pk Joe: 1.71 AoV Mn Joe: 1.22 AoV VTI: 0.42 AoV Pk Grad: 12.00 Aov Mn Grad: 7.00 ANAYELI Cont.VTI: 2.11 LVOT LVOT Pk Joe: 1.28 LVOT Mn Joe: 0.95 LVOT VTI: 0.31 LVOT Pk Grad: 7.00 LVOT Mn Grad: 4.00 LVOT Diam: 1.90 LVOT Area: 2.84 Diastolic Function MV Pk E: 1.14 MV Pk A: 0.89 E/A: 1.30 E'Medial: 6.74 E/E' Med: 16.90 E' Laterial: 9.03 E/E' Lat: 12.60 Right Ventricle TAPSE (mm): 25.20 TVS' Joe: 13.60 Tricuspid Valve TR Pk Joe: 2.62 TR Pk Grad: 27.00 RA Press: 3.00 RVSP: 30.00 Great Vessels Aorta Sinus of Valsalva: 3.20 2.0-3.5 cm Ao Asc: 3.90 2.1-3.4 cm Pulmonary Valve PV Pk Joe: 1.00 Peak PV Grad: 4.00 Updated in Other Vendor System with Status of Final Denis Velazco MD electronically signed on 09/24/2023 11:59:09 AM with status of Final
== END ==
LOC: HO.CARD 13:54
PROVIDERS: PCP Neurological Surgery; Visit Provider Internal Medicine Medical Oncology
DX: C50.919 Malignant neoplasm of unspecified site of unspecified female breast (principal)
CPT/HCPCS: 93306; 93356

== ENCOUNTER → 2023-09-23 13:57 | Outpatient (BNV) | payer MEDICARE, SELFPAY | PROVIDERS: PCP Neurological Surgery; Visit Provider Internal Medicine Cardiovascular Disease | DX: I36.1 Nonrheumatic tricuspid (valve) insufficiency (principal); I34.81 Nonrheumatic mitral (valve) annulus calcification | CPT/HCPCS: 93306 ==

== ENCOUNTER → 2023-10-07 11:33 | Outpatient (BNV) | payer MEDICARE, SELFPAY ==
--- NOTE | 2023-10-07 11:33 | A.OFFVIS_ITS ---
Intake Intake Visit Reasons: Amb Documentation Allergies No Known Allergies Allergy (Verified 09/09/23 11:11) PFSH Medical History Dysuria Osteopenia Hyperglycemia Thyroid nodule Hyperlipidemia HTN (hypertension) Surgical History History of surgery Hx of vein stripping Hx of blepharoplasty H/O colonoscopy S/P KWAKU (total abdominal hysterectomy) Family History Father Stroke Mother No problems noted. Social History (Updated 09/22/23 @ 08:14 by Regina Mas RN) Household Members: Spouse Housing: House Are you a primary career development consultant to a significant other at home: No Do you presently have visiting nurse or other home services: No Alcohol intake: current Alcohol intake frequency: does not drink Patient Tobacco Use Status: Never used Tobacco e-Cigarette/Vaping Use: Never Used service: No Current occupational status: retired Sexual orientation: Straight/Heterosexual Gender identity: Female Cognitive needs: No Hearing needs: No Vision needs: Yes Female Reproductive History Menstrual Age of Menarche: 16 Assessment & Plan Assessment & Plan (1) Triple negative breast cancer: Code(s): C50.919 - Malignant neoplasm of unspecified site of unspecified female breast Plan I called the patient today to review the findings in [place]. She underwent a multidisciplinary discussion with Oncology, breast surgery, and radiation oncology. The decision was to proceed with surgery which is been scheduled with Dr. Jillian Chong at [facility] on 10/15/2023. She is welcome to call the questions or concerns. Coding Level of Care Code Global (36034) Diagnoses Triple negative breast cancer C50.919
== END ==
PROVIDERS: PCP Internal Medicine; Visit Provider Surgery
DX: C50.919 Malignant neoplasm of unspecified site of unspecified female breast (principal)
CPT/HCPCS: 99024; 99212

== ENCOUNTER 2023-12-05 07:23 | Outpatient (REF) | payer MEDICARE, SELFPAY ==
[2023-12-05 07:31] LABS: MANUAL DIFF FLAG NO
[2023-12-05 07:53] LABS: Basophils Absolute Auto 0.1 X10*3/uL (0.0-0.2); Basophils Percent Auto 0.6 % (0-2); Eosinophils Absolute Auto 0.3 X10*3/uL (0.0-0.4); Eosinophils Percent Auto 3.1 % (0-4); Hemoglobin 13.5 g/dl (12.0-16.0); Imm Gran Abs Auto 0.02 X10*3/uL (0.00-0.03); Imm Gran Pct Auto 0.2 % (0.0-0.4); Lymphocytes Percent Auto 41.5 % (20-40); Mean Corpuscular HGB Conc 32.9 g/dl (31.0-35.0); Mean Corpuscular Volume 88.2 fL (80.0-98.0); Mean Platelet Volume 11.4 fL (9.4-12.3); Monocytes Absolute Auto 0.8 X10*3/uL (0.1-1.2); Monocytes Percent Auto 8.2 % (2-11); Neutrophils Absolute Auto 4.5 x10*3/uL (2.0-8.3); Neutrophils Percent Auto 46.4 % (45-73); Platelet Count 246 X10*3/uL (160-400); Red Blood Count 4.65 X10*6/uL (4.20-5.50); Red Cell Distribution Width 12.9 % (11.0-16.0); White Blood Count 9.7 X10*3/uL (4.8-10.8)
[2023-12-05 07:56] LABS: Estimated Average Glucose 128 mg/dL; Hemoglobin A1c % 6.1 % (<6.0)
[2023-12-05 08:40] LABS: Alanine Aminotransferase 22 U/L (0-31); Albumin Level 4.3 g/dL (3.5-5.0); Alkaline Phosphatase 71 U/L (39-117); Anion Gap 14 (12-20); Aspartate Amino Transferase 21 U/L (5-31); Bilirubin Total 0.6 mg/dL (0.0-1.0); Blood Urea Nitrogen 13 mg/dL (9-16); Calcium 10.1 mg/dL (8.4-10.2); Carbon Dioxide 29 mmol/L (22-29); Chloride 103 mmol/L (96-108); Cholesterol 203 mg/dL (<200); Estimated Glomerular Filt Rate > 60; Glucose Fasting 124 mg/dL (60-99); HDL Cholesterol 49 mg/dL (>40); LDL Cholesterol Calculated 119 mg/dL (<100); Potassium 3.6 mmol/L (3.3-5.1); Sodium 142 mmol/L (135-145); Total Protein 7.5 g/dL (6.5-8.0); Triglycerides 176 mg/dL (<150)
[2023-12-05 08:42] LABS: Vitamin D 25-OH Total 55.1 ng/mL (>30)
== END 2023-12-05 07:24 | disposition home or self-care (01) ==
LOC: HO.LAB 07:23
PROVIDERS: PCP Internal Medicine; Visit Provider Internal Medicine
DX: Z00.00 Encounter for general adult medical examination without abnormal findings (principal); R73.9 Hyperglycemia, unspecified; E78.5 Hyperlipidemia, unspecified; I10 Essential (primary) hypertension; E55.9 Vitamin D deficiency, unspecified; R92.8 Other abnormal and inconclusive findings on diagnostic imaging of breast
CPT/HCPCS: 36415; 80053; 80061; 82306; 83036; 85025

== ENCOUNTER 2023-12-09 08:18 | Outpatient (AMB) | payer MEDICARE, SELFPAY ==
--- NOTE | 2023-12-09 08:32 | MHC.PC.OV ---
Vital Signs 12/09/23 08:33 Height 5 ft 5 in Weight 185 lb BMI 30.8 BP 126/80 Blood Pressure Location Rt brachial Position Sitting Pulse 70 Pulse Source Pulse Oximeter Pulse Oximetry (%) 97 Oxygen Delivery Method Room Air Intake Visit Reasons: 6 Month follow up Intake Note: Pt is here today for 6 months follow up visit. Allergies No Known Allergies Allergy (Verified 09/09/23 11:11) Medication List - Last Reconciled 12/09/23 by Katelyn Heart MD metoprolol succinate ER 50 mg PO DAILY omega 5-vpr-ipc-fish oil 60-90-500 mg (Fish Oil) 1 cap PO DAILY pravastatin 40 mg PO BEDTIME triamterene-hydrochlorothiazid 37.5-25 mg 1 tab PO DAILY Tobacco use date assessed: 06/10/23 Dental Screening Dental Screen Date: 06/10/23 HPI 6 Month follow up HPI Details Pt presents for f/u breast ca. Pt had lumpectomy for triple negative and will be starting chemo and RTx at [facility]. Patient reports feeling anxious but denies depression or suicidal ideation. HTN and hyperlipid, a controlled on current medications [facility] Medical History Dysuria Osteopenia Hyperglycemia Thyroid nodule Hyperlipidemia HTN (hypertension) Surgical History History of surgery Hx of vein stripping Hx of blepharoplasty H/O colonoscopy S/P KWAKU (total abdominal hysterectomy) Family History Father Stroke Mother No problems noted. Social History Household Members: Spouse Housing: House Are you a primary customer care assistant to a significant other at home: No Do you presently have visiting nurse or other home services: No Alcohol intake: current Alcohol intake frequency: does not drink Patient Tobacco Use Status: Never used Tobacco e-Cigarette/Vaping Use: Never Used service: No Current occupational status: retired Sexual orientation: Straight/Heterosexual Gender identity: Female Cognitive needs: No Hearing needs: No Vision needs: Yes Female Reproductive History Menstrual Age of Menarche: 16 Questionnaire PHQ-9 Over the last 2 weeks, how often have you been bothered by any of the following problems? 1. Little interest or pleasure in doing things: not at all 2. Feeling down, depressed, or hopeless: several days 3. Trouble falling or staying asleep, or sleeping too much: several days 4. Feeling tired or having little energy: several days 5. Poor appetite or overeating: not at all 6. Feeling bad about yourself - or that you are a failure or have let yourself or your family down: not at all 7. Trouble concentrating on things, such as reading the newspaper or watching television: not at all 8. Moving or speaking so slowly that other people could have noticed. Or the opposite - being so fidgety or restless that you have been moving around a lot more than usual: not at all 9. Thoughts that you would be better off or of hurting yourself in some way: not at all Total score: 3 Depression Screening Interpretation: Negative Depression Screening Done: Yes Source: Developed by Drs. Christiano Natarajan, Anita De, Jose Antonio Bryant and colleagues, with an educational carlton from [employer]. Thrive Questionnaire Date Thrive assessed: 12/09/23 I am a: Patient What is your living situation today?: I have a steady place to live Within the past 12 months, did the food you bought not last and you didn't have the money to get more?: Never true Within the past 12 months, did you worry whether your food would run out before you got money to buy more?: Never true Do you have trouble paying for medicines?: No Do you have trouble getting transportation to medical appointments?: No Do you have trouble paying your heating and electricity bill?: No Do you have trouble taking care of your child, family member or friend?: No Do you have trouble with day-to-day activities such as bathing, preparing meals, shopping, managing finances, etc.?: No Are you currently unemployed and looking for a job?: No Are you interested in more education?: No Please select the resources that you would like help with: None THRIVE Score: 0 ANASTASIA-7 AMB Questionnaire ANASTASIA-7 Date ANASTASIA - 7 assessed: 12/09/23 Feeling nervous, anxious, or on edge: 1 = Several days Not being able to stop or control worryin = Several days Worrying too much about different things: 1 = Several days Trouble relaxin = Several days Being so restless that it is hard to sit still: 1 = Several days Becoming easily annoyed or irritable: 1 = Several days Feeling afraid as if something awful might happen: 1 = Several days Total ANASTASIA-7 score (0-4 normal; 5-9 mild; 10-14 moderate; 15-21 severe): 7 Source: Developed by Drs. Christiano Natarajan, Anita De, Jose Antonio Bryant and colleagues, with an educational carlton from [employer]. Review of Systems Const All systems reviewed & are unremarkable except as noted in HPI and below Reports no additional complaints Eyes Reports no additional complaints ENT Reports no additional complaints Card Reports no additional complaints Resp Reports no additional complaints GI Reports no additional complaints Reports no additional complaints Physical exam (Primary Care) Vital Signs: Last Vital Signs Pulse 70 12/09/23 08:33 BP 126/80 12/09/23 08:33 Pulse Ox 97 12/09/23 08:33 Oxygen Delivery Method Room Air 12/09/23 08:33 BMI result Body Mass Index 30.8 Tobacco/Smoking Status: Tobacco use Status Tobacco use date assessed 06/10/23 12/09/23 08:35 Patient Tobacco Use Status Never used Tobacco 12/09/23 08:35 e-Cigarette/Vaping Use Never Used 12/09/23 08:35 PHQ-9: PHQ-9 Score PHQ-9: Total score 3 12/09/23 08:43 Depression Screening Interpretation: Negative Thrive Assessment: Date of Thrive Assessment Date Thrive assessed 12/09/23 12/09/23 08:40 Const General: no acute distress HENMT Mouth: Normal oral and palatal mucosa present Eyes General: appearance normal, both eyes and all related structures Neck Neck: Yes supple Resp Effort & Inspection: normal respiratory effort Auscultation: clear to auscultation bilaterally Cardio Rhythm: regular rhythm Heart sounds: S1 normal heart sound present and S2 normal heart sound present Assessment and Plan Assessment & Plan (1) HTN (hypertension): Code(s): I10 - Essential (primary) hypertension Plan: Continue current medications (2) Hyperlipidemia: Code(s): E78.5 - Hyperlipidemia, unspecified Plan: Continue statin (3) Hyperglycemia: Comment: A1C 6.1 06/21, A1C 5.9 10/21 Code(s): R73.9 - Hyperglycemia, unspecified Plan: A1c is 6.1, continue ADA diet, increase physical activity, follow-up in 6 months with a fasting labs before (4) Triple negative breast cancer: Comment: s/p lumpectomy at [facility] [place] 11/22, chemo and radiation at [facility] Code(s): C50.919 - Malignant neoplasm of unspecified site of unspecified female breast (5) Anxiety: Code(s): F41.9 - Anxiety disorder, unspecified Plan: Start 25 mg of Zoloft and stress management discussed with the patient Orders: Orders Complete Blood Count Auto Diff 6 Months E78.5 - Hyperlipidemia, unspecified, I10 - Essential (primary) hypertension, R73.9 - Hyperglycemia, unspecified Comprehensive [place]. Panel Fast 6 Months E78.5 - Hyperlipidemia, unspecified, I10 - Essential (primary) hypertension, R73.9 - Hyperglycemia, unspecified Hemoglobin A1c 6 Months E78.5 - Hyperlipidemia, unspecified, I10 - Essential (primary) hypertension, R73.9 - Hyperglycemia, unspecified Lipid Panel 6 Months E78.5 - Hyperlipidemia, unspecified, I10 - Essential (primary) hypertension, R73.9 - Hyperglycemia, unspecified Medications: New sertraline (Zoloft) 25 mg PO DAILY 90 tabs 2RF Coding Level of Care Code Est Pt Level 4 (03907) Diagnoses HTN (hypertension) I10 Hyperlipidemia E78.5 Hyperglycemia R73.9 Triple negative breast cancer C50.919 Anxiety F41.9
[2023-12-09 08:33] VITALS: BP 126/80; PULSE 70; O2SAT 97; BMI 30.8
== END 2023-12-09 09:00 | disposition home or self-care (01) ==
PROVIDERS: PCP Internal Medicine; Visit Provider Internal Medicine
DX: I10 Essential (primary) hypertension (principal); E78.5 Hyperlipidemia, unspecified; R73.9 Hyperglycemia, unspecified; C50.919 Malignant neoplasm of unspecified site of unspecified female breast; F41.9 Anxiety disorder, unspecified
CPT/HCPCS: 99214

== ENCOUNTER 2024-06-07 07:19 | Outpatient (REF) | payer MEDICARE, SELFPAY ==
[2024-06-07 07:43] LABS: MANUAL DIFF FLAG NO
[2024-06-07 07:56] LABS: Basophils Percent Auto 0.5 % (0-2); Eosinophils Absolute Auto 0.3 X10*3/uL (0.0-0.4); Eosinophils Percent Auto 5.9 % (0-4); Hemoglobin 12.4 g/dl (12.0-16.0); Imm Gran Abs Auto 0.02 X10*3/uL (0.00-0.03); Imm Gran Pct Auto 0.4 % (0.0-0.4); Lymphocytes Absolute Auto 1.9 X10*3/uL (1.2-4.9); Lymphocytes Percent Auto 34.5 % (20-40); Mean Corpuscular HGB Conc 32.6 g/dl (31.0-35.0); Mean Corpuscular Hemoglobin 28.4 pg (27.0-33.0); Mean Platelet Volume 11.1 fL (9.4-12.3); Monocytes Absolute Auto 0.5 X10*3/uL (0.1-1.2); Monocytes Percent Auto 9.6 % (2-11); Neutrophils Absolute Auto 2.8 x10*3/uL (2.0-8.3); Neutrophils Percent Auto 49.1 % (45-73); Platelet Count 170 X10*3/uL (160-400); Red Blood Count 4.37 X10*6/uL (4.20-5.50); Red Cell Distribution Width 12.5 % (11.0-16.0); White Blood Count 5.6 X10*3/uL (4.8-10.8)
[2024-06-07 08:00] LABS: Estimated Average Glucose 131 mg/dL; Hemoglobin A1C 147.0768 umol/L; Hemoglobin A1c % 6.2 % (<6.0); Total Hemoglobin (HGBA1C) 3341.7841 umol/L
[2024-06-07 08:20] LABS: Alanine Aminotransferase 21 U/L (0-31); Alkaline Phosphatase 58 U/L (39-117); Anion Gap 14 (12-20); Aspartate Amino Transferase 22 U/L (5-31); Bilirubin Total 0.5 mg/dL (0.0-1.0); Blood Urea Nitrogen 25 mg/dL (9-16); Calcium 9.7 mg/dL (8.4-10.2); Carbon Dioxide 26 mmol/L (22-29); Chloride 105 mmol/L (96-108); Cholesterol 238 mg/dL (<200); Estimated Glomerular Filt Rate > 60; Glucose Fasting 112 mg/dL (60-99); HDL Cholesterol 49 mg/dL (>40); LDL Cholesterol Calculated 153 mg/dL (<100); Potassium 3.9 mmol/L (3.3-5.1); Sodium 141 mmol/L (135-145); Triglycerides 181 mg/dL (<150)
== END 2024-06-07 07:20 | disposition home or self-care (01) ==
LOC: HO.LAB 07:19
PROVIDERS: PCP Internal Medicine; Visit Provider Internal Medicine
DX: E78.5 Hyperlipidemia, unspecified (principal); I10 Essential (primary) hypertension; R73.9 Hyperglycemia, unspecified
CPT/HCPCS: 36415; 80053; 80061; 83036; 85025

== ENCOUNTER 2024-06-11 07:40 | Outpatient (AMB) | payer MEDICARE, SELFPAY ==
--- NOTE | 2024-06-11 08:06 | MHC.PC.OV ---
Vital Signs 06/11/24 08:13 Height 5 ft 5 in Weight 170 lb BMI 28.3 BP 134/76 Blood Pressure Location Lt brachial Position Sitting Pulse 72 Pulse Source Pulse Oximeter Pulse Oximetry (%) 98 Oxygen Delivery Method Room Air Intake Visit Reasons: Annual PE Intake Note: Pt is here today for PE. Allergies No Known Allergies Allergy (Verified 06/11/24 08:16) Medication List - Last Reconciled 06/11/24 by Katelyn Heart MD metoprolol succinate ER 50 mg PO DAILY omega 1-qrn-vsf-fish oil 60-90-500 mg (Fish Oil) 1 cap PO DAILY pravastatin 40 mg PO BEDTIME triamterene-hydrochlorothiazid 37.5-25 mg 1 tab PO DAILY Tobacco use date assessed: 06/11/24 Fall risk assessment: No Falls in past year Last assessed Fall Risk: 06/11/24 Dental Screening Dental Screen Date: 06/11/24 Did you have a dental visit in the last 12 months?: Yes Did you have a dental problem in the last 6 months where you did not have access to dental care?: No Was dental information given to patient?: Patient has dentist HPI Annual PE HPI Details Pt presents for PE. Pt completed tx for breast ca, lumpectomy, RTx and chemo. Pt is feeling well overall. [facility] Medical History (Updated 06/11/24 @ 08:41 by Katelyn Heart MD) Dysuria Osteopenia Hyperglycemia Thyroid nodule Hyperlipidemia HTN (hypertension) Surgical History History of surgery Hx of vein stripping Hx of blepharoplasty H/O colonoscopy S/P KWAKU (total abdominal hysterectomy) Family History Father Stroke Mother No problems noted. Social History Household Members: Spouse Housing: House Are you a primary geriatric care manager to a significant other at home: No Do you presently have visiting nurse or other home services: No Alcohol intake: current Alcohol intake frequency: does not drink Patient Tobacco Use Status: Never used Tobacco e-Cigarette/Vaping Use: Never Used service: No Current occupational status: retired Sexual orientation: Straight/Heterosexual Gender identity: Female Cognitive needs: No Hearing needs: No Vision needs: Yes Female Reproductive History Menstrual Age of Menarche: 16 Questionnaire Thrive Questionnaire Date Thrive assessed: 12/09/23 AUDIT C Alcohol Use Questionnaire (AUDIT-C) 1. How often do you have a drink containing alcohol?: Never 3. How often do you have six or more drinks on one occasion?: Never Total Score: 0 ANASTASIA-7 AMB Questionnaire ANASTASIA-7 Date ANASTASIA - 7 assessed: 12/09/23 Source: Developed by Drs. Christiano Natarajan, Anita De, Jose Antonio Bryant and colleagues, with an educational carlton from [employer]. Review of Systems Const All systems reviewed & are unremarkable except as noted in HPI and below Eyes Reports no additional complaints ENT Reports no additional complaints Card Reports no additional complaints Resp Reports no additional complaints GI Reports no additional complaints Reports no additional complaints Physical exam (Primary Care) Vital Signs: Last Vital Signs Pulse 72 06/11/24 08:13 BP 134/76 06/11/24 08:13 Pulse Ox 98 06/11/24 08:13 Oxygen Delivery Method Room Air 06/11/24 08:13 BMI result Body Mass Index 28.3 Tobacco/Smoking Status: Tobacco use Status Tobacco use date assessed 06/11/24 06/11/24 08:21 Patient Tobacco Use Status Never used Tobacco 06/11/24 08:08 e-Cigarette/Vaping Use Never Used 06/11/24 08:08 Thrive Assessment: Date of Thrive Assessment Date Thrive assessed 12/09/23 06/11/24 08:08 Const General: no acute distress HENMT Head: Yes normal to inspection Ears: hearing grossly normal bilaterally Throat: Yes posterior oropharynx normal Eyes General: appearance normal, both eyes and all related structures Neck Neck: Yes no lymphadenopathy and Yes supple Resp Effort & Inspection: normal respiratory effort Auscultation: clear to auscultation bilaterally Cardio Rhythm: regular rhythm Heart sounds: S1 normal heart sound present and S2 normal heart sound present GI Inspection: Yes normal to inspection Palpation (GI): Soft to palpation Percussion: Yes normal to percussion Auscultation: normal bowel sounds Coding Level of Care Code Est Pt Prev Care >65y(77652) Diagnoses HTN (hypertension) I10 Hyperlipidemia E78.5 Hyperglycemia R73.9 Annual physical exam Z00.00 Triple negative breast cancer C50.919 Assessment & Plan Assessment & Plan (1) HTN (hypertension): Code(s): I10 - Essential (primary) hypertension Category: Medical Plan: Continue current medications (2) Hyperlipidemia: Code(s): E78.5 - Hyperlipidemia, unspecified Category: Medical Plan: Low-cholesterol diet and continue pravastatin follow-up in 6 months with a fasting labs before (3) Hyperglycemia: Comment: A1C 6.1 06/21, A1C 5.9 10/21 Code(s): R73.9 - Hyperglycemia, unspecified Category: Medical Plan: A1c is 6.2, continue ADA diet regular exercise (4) Annual physical exam: Code(s): Z00.00 - Encounter for general adult medical examination without abnormal findings Category: Medical Plan: Well-balanced diet regular physical activity discussed with the patient (5) Triple negative breast cancer: Comment: [place] [facility] [place], chemo and radiation at [facility] Code(s): C50.9 - Malignant neoplasm of unspecified site of unspecified female breast Category: Medical Plan: Follow-up with oncology Orders: Orders Comprehensive [place]. Panel Fast 6 Months C50.919 - Malignant neoplasm of unspecified site of unspecified female breast, E78.5 - Hyperlipidemia, unspecified, I10 - Essential (primary) hypertension, R73.9 - Hyperglycemia, unspecified, Z00.00 - Encounter for general adult medical examination without abnormal findings Lipid Panel 6 Months C50.919 - Malignant neoplasm of unspecified site of unspecified female breast, E78.5 - Hyperlipidemia, unspecified, I10 - Essential (primary) hypertension, R73.9 - Hyperglycemia, unspecified, Z00.00 - Encounter for general adult medical examination without abnormal findings Complete Blood Count Auto Diff 6 Months C50.919 - Malignant neoplasm of unspecified site of unspecified female breast, E78.5 - Hyperlipidemia, unspecified, I10 - Essential (primary) hypertension, R73.9 - Hyperglycemia, unspecified, Z00.00 - Encounter for general adult medical examination without abnormal findings TSH reflex Free T4 6 Months C50.919 - Malignant neoplasm of unspecified site of unspecified female breast, E78.5 - Hyperlipidemia, unspecified, I10 - Essential (primary) hypertension, R73.9 - Hyperglycemia, unspecified, Z00.00 - Encounter for general adult medical examination without abnormal findings Vitamin D 25-OH Total 6 Months C50.919 - Malignant neoplasm of unspecified site of unspecified female breast, E78.5 - Hyperlipidemia, unspecified, I10 - Essential (primary) hypertension, R73.9 - Hyperglycemia, unspecified, Z00.00 - Encounter for general adult medical examination without abnormal findings Medications: Discontinued sertraline (Zoloft) Discontinued Reason: Doctor's Order 25 mg PO DAILY 90 tabs 3RF
[2024-06-11 08:13] VITALS: BP 134/76; PULSE 72; O2SAT 98; BMI 28.3
== END 2024-06-11 08:43 | disposition home or self-care (01) ==
PROVIDERS: PCP Internal Medicine; Visit Provider Internal Medicine
DX: Z00.00 Encounter for general adult medical examination without abnormal findings (principal); I10 Essential (primary) hypertension; C50.919 Malignant neoplasm of unspecified site of unspecified female breast; E78.5 Hyperlipidemia, unspecified; R73.9 Hyperglycemia, unspecified

== ENCOUNTER → 2024-06-11 07:40 | Outpatient (BNVA) | payer MEDICARE, SELFPAY | PROVIDERS: PCP Internal Medicine; Visit Provider Internal Medicine | DX: Z00.00 Encounter for general adult medical examination without abnormal findings (principal); I10 Essential (primary) hypertension; E78.5 Hyperlipidemia, unspecified; R73.9 Hyperglycemia, unspecified; C50.919 Malignant neoplasm of unspecified site of unspecified female breast | CPT/HCPCS: 99397 ==

== ENCOUNTER 2025-01-10 09:19 | Outpatient (AMB) | payer MEDICARE, SELFPAY ==
--- NOTE | 2025-01-10 09:25 | MHC.OFFVIS ---
Vital Signs 01/10/25 09:31 Height 5 ft 5 in Weight 170 lb BMI 28.3 Intake Visit Reasons: PRN follow up VV w/ pain & swelling Intake Note: PRN follow up for Right LE VV. Pt states she has tired Right w/ aching. Business Project Analyst Required: No Accompanied by: Self / Same As Patient Allergies No Known Allergies Allergy (Verified 01/10/25 09:32) HPI HPI PRN follow up VV w/ pain & swelling: Details: Nicolasa, a very pleasant 79yo female patient, is presenting today with her for concerns of right > left lower extremity swelling and discomfort .Complaints include discomfort over varicosities, swelling of lower extremities, cramping, fatigue, and heaviness of the lower extremities. It has been affecting their daily activities including walking and physical activity. It is noted more so in the left leg. She has an extensive hx of venous procedures on bilateral legs, most recent is a left micro, performed on 08/23/22. She was found to have venous insufficiency on US in 2022; however, she had no complaints in the right lower extremity. She is a nonsmoker and is not a diabetic. There is no hx of BC. Patient dstates she has had multiple venous procedures; she has had one on her right lower extremity, >25y ago. Patient denies any history of DVT/ PE. Patient denies any history of phlebitis. Trial of compression includes - elevation and compression socks, which helps They now present for vascular evaluation regarding their varicose veins. [facility] Medical History Dysuria Osteopenia Hyperglycemia Thyroid nodule Hyperlipidemia HTN (hypertension) Surgical History History of surgery Hx of vein stripping Hx of blepharoplasty H/O colonoscopy S/P KWAKU (total abdominal hysterectomy) Family History Father Stroke Mother No problems noted. Social History Household Members: Spouse Housing: House Are you a primary child care education coordinator to a significant other at home: No Do you presently have visiting nurse or other home services: No Alcohol intake: current Alcohol intake frequency: does not drink Patient Tobacco Use Status: Never used Tobacco e-Cigarette/Vaping Use: Never Used service: No Current occupational status: retired Sexual orientation: Straight/Heterosexual Gender identity: Female Cognitive needs: No Hearing needs: No Vision needs: Yes Female Reproductive History Menstrual Age of Menarche: 16 Review of Systems Const Reports as per HPI and Denies weakness ENT Reports Normal hearing present and Denies dizziness Card Reports as per HPI, Denies chest pain, Denies chest pain at rest, Denies chest pain with activity, Denies dyspnea and Denies dyspnea on exertion Resp Reports as per HPI, Denies cough, Denies dyspnea and Denies dyspnea on exertion GI Reports as per HPI, Denies abdominal pain, Denies nausea and Denies vomiting Musc Denies numbness Skin/Breast Reports as per HPI, Denies erythema and Denies wounds Neuro Reports Normal hearing present, Denies dizziness, Denies numbness, Denies Sensory deficit (Neuro) and Denies weakness Psych Reports no additional complaints Endo Reports no additional complaints Physical Exam Vital Signs: BMI result Body Mass Index 28.3 Const General: healthy appearing and no acute distress Orientation/consciousness: patient oriented x3 HEENT Head: Yes normal to inspection Ears: hearing grossly normal bilaterally Mouth: Normal oral and palatal mucosa present Resp Effort & Inspection: normal respiratory effort and able to speak in complete sentences Auscultation: clear to auscultation bilaterally Cardio Jugular venous distension: no JVD Rate: regular rate Rhythm: regular rhythm Heart sounds: S1 normal heart sound present and S2 normal heart sound present Bruits: no abdominal aortic bruits, no carotid bruits, no femoral bruits and no renal bruits Peripheral pulses: Peripheral pulses 2+ throughout GI Inspection: Yes normal to inspection Palpation (GI): No Abdominal aortic bruit present Skin General skin exam: no rashes or lesions noted Wounds: no wounds Hair: normal Neuro General: patient oriented x3 Cranial nerves: Yes Normal hearing present Cognition (Neuro): normal cognition Gait exam (Neuro): Normal gait present Motor exam (neuro): 5/5 motor strength present throughout Sensory Exam: No Sensory deficit (Neuro) Extrem Other: Right lower extremity: discoloration noted around the ankle, as well as clusters of telangiectasia. +1 pitting edema noted. Several rope-like varicosities, >4cm in size, noted on the medial aspect of the lower thigh, knee, and upper calf areas; slightly tender to palpation. Palpable DP pulse. Left lower extremity: discoloration noted around the ankle, as well as clusters of telangiectasia. +1 pitting edema noted. Smaller rope-like varicosities noted on the anterior aspect in the pretibial area of the calf, not tender to palpation. Palpable DP pulse. CEAP: C - 4 E - primary A - superficial P - reflux General: Yes normal to inspection, Yes full ROM, Yes capillary refill normal and Yes normal gait Assessment & Plan Assessment & Plan (1) Varicose veins of right lower extremity with inflammation: Code(s): I83.11 - Varicose veins of right lower extremity with inflammation Category: Medical Plan: Nicolasa is presenting today with her for concerns of right lower extremity swelling with discomfort and VV. In short, the patient has evidence of venous insufficiency. I have discussed the pathophysiology with the patient. In addition I have provided informational material regarding venous disease to the patient. We have discussed conservative measures including compression, elevation, and exercise. I have taken the liberty of ordering venous insufficiency testing with the patient. They will follow up with me after testing. The patient had an opportunity to ask questions regarding the treatment plan. All questions were answered. Imaging studies, laboratory studies and physical exam results were discussed and reviewed in detail. No major barriers to understanding were identified. The patient expressed understanding and agreement with the above treatment plan. The patient is aware they should contact our office by phone for worsening of the current condition or the appearance of new symptoms. Thank you for allowing me to participate in the vascular care of this patient. If you have any questions or concerns regarding the treatment for the above condition please do not hesitate to contact me. The office telephone contact is [phone]. This note is constructed using voice recognition software. While every effort has been made to ensure accuracy, chip mucker errors may have been included. Thank you for allowing me to participate in the care of your patient. Yours sincerely, GINO Mcmullen Orders: Orders US venous duplex LE BI 1 Week I83.11 - Varicose veins of right lower extremity with inflammation Coding Level of Care Code Est Pt Level 4 (86955) Diagnoses Varicose veins of right lower extremity with inflammation I83.11
[2025-01-10 09:31] VITALS: BMI 28.3
== END 2025-01-10 10:00 | disposition home or self-care (01) ==
LOC: HO.HVS 09:20
PROVIDERS: PCP Internal Medicine; Visit Provider Physician Assistant Surgical
DX: I83.11 Varicose veins of right lower extremity with inflammation (principal)
CPT/HCPCS: 99214

== ENCOUNTER → 2025-01-10 09:19 | Outpatient (BNVA) | payer MEDICARE, SELFPAY | PROVIDERS: PCP Internal Medicine; Visit Provider Physician Assistant Surgical | DX: I83.11 Varicose veins of right lower extremity with inflammation (principal) | CPT/HCPCS: 99212 ==

== ENCOUNTER 2025-02-08 08:18 | Outpatient (REF) | payer MEDICARE, SELFPAY ==
--- NOTE | ~2025-02-08 | US_ITS ---
EXAMINATION: US LOWER EXTREMITY VENOUS (REFLUX EXAM), BILATERAL CLINICAL INFORMATION: Varices. Status post stripping vein and or ablation, left lower extremity. COMPARISON: None. TECHNIQUE: Color flow triplex imaging and compression Doppler was performed to evaluate both the deep and the superficial systems bilaterally. To evaluate the superficial system, the examination was performed in the upright position. Color-flow Doppler ultrasound and compression ultrasound were utilized. In addition, maneuvers were utilized to demonstrate reflux. FINDINGS: 1. DEEP VENOUS ULTRASOUND OF THE RIGHT LOWER EXTREMITY: Common Femoral Vein: Compressible, normal respiratory variation and augmented flow. Femoral Vein: Compressible, normal color flow and augmentation. Popliteal Vein: Compressible, normal augmentation. Deep Reflux: There is no evidence of reflux in the deep system in either the common femoral vein, superficial femoral or the popliteal vein. There is no evidence of a Echavarria's cyst. 2. SUPERFICIAL ULTRASOUND WITH DOPPLER OF RIGHT LOWER EXTREMITY: GREAT SAPHENOUS VEIN: Saphenofemoral Junction: 0.5 cm; Reflux: 0 ms Proximal Thigh: Surgery/stripped. Mid Thigh: Surgery/stripped. Distal Thigh: Surgery/stripped. At Knee: Surgery/stripped. Proximal Calf: Surgery/stripped. Mid Calf: Surgery/stripped. Distal Calf: Surgery/stripped. DUPLICATED MEDIAL GREAT SAPHENOUS VEIN: Diameter: None imaged Reflux: NA DUPLICATED LATERAL GREAT SAPHENOUS VEIN: Diameter: None imaged Reflux: NA SMALL SAPHENOUS VEIN: Saphenopopliteal Junction: 0.2 cm; Reflux: 0 ms Proximal: 0.2 cm; Reflux: 0 ms Distal: 0.2 cm; Reflux: 0 ms VEIN OF GIACOMINI: Size: NA Reflux: NA PERFORATORS: Location: Mid calf. Size: 0.3 cm. Reflux: NA VARICOSITIES: Location: Mid thigh, at the knee and distal calf. Size: 0.3-0.5 cm. Reflux: 2784 ms at the mid thigh and 2716 ms at the knee. 3. DEEP VENOUS ULTRASOUND OF THE LEFT LOWER EXTREMITY: Common Femoral Vein: Compressible, normal respiratory variation and augmented flow. Femoral Vein: Compressible, normal color flow and augmentation. Popliteal Vein: Compressible, normal augmentation. Deep Reflux: There is no evidence of reflux in the deep system in either the common femoral vein, superficial femoral or the popliteal vein. There is no evidence of a Echavarria's cyst. 4. SUPERFICIAL ULTRASOUND WITH DOPPLER OF LEFT LOWER EXTREMITY: GREAT SAPHENOUS VEIN: Saphenofemoral Junction: 1.2 cm; Reflux: 0 ms Proximal Thigh: 0.4 cm; Reflux: 0 ms Mid Thigh: cm; Reflux: 0 ms Distal Thigh: cm; Reflux: 0 ms At Knee: 0.8 cm; Reflux: 2076 ms Proximal Calf: 0.4 cm; Reflux: 2516 ms Mid Calf: 0.4 cm; Reflux: 0 ms Distal Calf: 0.4 cm; Reflux: 784 ms DUPLICATED MEDIAL GREAT SAPHENOUS VEIN: Diameter: None imaged Reflux: NA DUPLICATED LATERAL GREAT SAPHENOUS VEIN: Diameter: None imaged. Reflux: NA SMALL SAPHENOUS VEIN: Saphenopopliteal Junction: 0.2 cm; Reflux: 0 ms Proximal: 0.2 cm; Reflux: 1352 ms Distal: 0.2 cm; Reflux: 0 ms VEIN OF GIACOMINI: Size: NA Reflux: NA PERFORATORS: Location: Proximal to distal calf. Size: 0.2-0.3 cm. Reflux: NA VARICOSITIES: Location: Distal thigh, at the knee and midcalf. Size: 0.5-0.6 cm. Reflux: 2552 ms at the distal thigh and 3416 ms at the knee. US/US venous insuf bilat IMPRESSION: Right: Varices with reflux at the mid thigh and at the knee. Perforators without reflux.. Left: Venous insufficiency, great saphenous vein from the knee to the ankle. Venous insufficiency, small saphenous vein at the mid calf. Varices with reflux at the knee and distal thigh. Perforators without reflux. Electronically signed by: Casey Zamudio MD 02/08/2025 10:03 AM EDT
== END 2025-02-08 08:19 | disposition home or self-care (01) ==
LOC: HO.US 08:18
PROVIDERS: PCP Internal Medicine; Visit Provider Physician Assistant Surgical
DX: I83.11 Varicose veins of right lower extremity with inflammation (principal)
CPT/HCPCS: 93970

== ENCOUNTER → 2025-02-08 08:19 | Outpatient (BNV) | payer MEDICARE, SELFPAY | PROVIDERS: PCP Internal Medicine; Visit Provider Radiology Diagnostic Radiology | DX: I87.2 Venous insufficiency (chronic) (peripheral) (principal) | CPT/HCPCS: 93970 ==

== ENCOUNTER 2025-04-18 12:54 | Outpatient (AMB) | payer MEDICARE, SELFPAY ==
[2025-04-18 13:07] VITALS: BMI 28.3
--- NOTE | 2025-04-18 13:07 | A.OFFVIS_ITS ---
Vital Signs 04/18/25 13:07 Height 5 ft 5 in Weight 170 lb BMI 28.3 Intake Visit Reasons: follow up s/p US 02/08/25 Intake Note: follow up US 02/08/25. Pt states that right LE is worse than the Left LE. Pt has cramping, pain, discoloration and restlessness in her legs. Also has large rope like VV Senior Sourcing Manager Required: No Accompanied by: Spouse Allergies No Known Allergies Allergy (Verified 04/18/25 13:13) HPI HPI follow up s/p US 02/08/25: Details: Very pleasant 79-year-old female presents for follow-up regarding venous disease. She does have a prior history multiple venous procedures they were done about 25 years ago. She complains of pain more so on her right foot. She now presents to us for follow-up with venous insufficiency testing. [facility] Medical History Dysuria Osteopenia Hyperglycemia Thyroid nodule Hyperlipidemia HTN (hypertension) Surgical History History of surgery Hx of vein stripping Hx of blepharoplasty H/O colonoscopy S/P KWAKU (total abdominal hysterectomy) Family History Father Stroke Mother No problems noted. Social History Household Members: Spouse Housing: House Are you a primary medical care administrator to a significant other at home: No Do you presently have visiting nurse or other home services: No Alcohol intake: current Alcohol intake frequency: does not drink Patient Tobacco Use Status: Never used Tobacco e-Cigarette/Vaping Use: Never Used service: No Current occupational status: retired Sexual orientation: Straight/Heterosexual Gender identity: Female Cognitive needs: No Hearing needs: No Vision needs: Yes Female Reproductive History Menstrual Age of Menarche: 16 Review of Systems Const Reports as per HPI ENT Reports no additional complaints Card Denies chest pain, Denies chest pain at rest and Denies chest pain with activity Resp Denies chest congestion and Denies cough GI Reports no additional complaints Musc Details: pain over varicosities, aching of lower extremities, swelling, cramping, heaviness and tiredness, itching Denies abnormal gait Skin/Breast Reports pruritus and Denies wounds Neuro Reports no additional complaints and Denies abnormal gait Psych Denies no additional complaints Physical Exam Vital Signs: BMI result Body Mass Index 28.3 Const General: cooperative, healthy appearing and comfortable Orientation/consciousness: oriented to person, oriented to place and oriented to time Neck Carotids: no bruits Chest Chest palpation & inspection: normal inspection of the chest and normal palpation of entire chest wall Resp Effort & Inspection: normal respiratory effort and able to speak in complete sentences Cardio Rate: regular rate Heart sounds: S1 normal heart sound present and S2 normal heart sound present Peripheral pulses: Peripheral pulses 2+ throughout GI Inspection: Yes normal to inspection Skin Other: +2 edema, large rope-like varicosities greater than 4 mm cluster right calf CEAP Classification C4 - skin color changes Ep - Etiology Primary As - superficial veins P - reflux General skin exam: dry skin Neuro General: oriented to person, oriented to place and oriented to time Extrem Other: Pain on direct palpation of right plantar surface of the foot. Right lower extremity: full ROM, normal capillary refill and edema Left lower extremity: full ROM, normal capillary refill and edema Psych Mental Status: mental status grossly normal Results Reviewed Results Reviewed: Brief summary of venous insufficiency testing is as follows: right great saphenous vein: negative right small saphenous vein: negative right accessory vein: none present left great saphenous vein: Focally positive in left calf left small saphenous vein: negative left accessory vein: none present Please note there is no evidence of any venous aneurysms or significant tortuosity Assessment & Plan Assessment & Plan (1) Varicose veins of left lower extremity with inflammation: Comment: 08/23/2022 - left leg microphlebectomy Code(s): I83.12 - Varicose veins of left lower extremity with inflammation Category: Medical Plan: In short patient is negative for any additional significant venous insufficiency. Her cluster of varicosities have not been a source of pain for her either. Concern is of her right foot pain. See below. We did discuss routine conservative measures including compression elevation and exercise. Should there be any issues with her varicosities in the future she was instructed to reach back out to us. (2) Right foot pain: Code(s): M79.671 - Pain in right foot Category: Medical Plan: I do believe she has an element of plantar fasciitis. This was discussed with her along with obtaining shoe inserts. Should this persist she may benefit from a podiatry evaluation. Once again she will follow up with us on an as-needed basis. Thank you for allowing us to assist in her care. Coding Level of Care Code Est Pt Level 4 (40576) Diagnoses Varicose veins of left lower extremity with inflammation I83.12 Right foot pain M79.671
--- OUTSIDE RECORDS SUMMARY | 2025-04-18 14:56 | XMS_ITS | Encounter Summary ---
Author Organization [facility] Address [address] [place] [address] Phone Care Team Providers Care Mdm Developer Name Role Phone Katelyn Heart MD Primary Care Provider Tawana Hernadez MD Unavailable SpringRamona MD Unavailable [phone] Isabel Chong MD Unavailable Jillian Chong MD, PhD Unavailable Encounter Details Date Type Department Care Team (Late st Contact Info) Description 10/25/2023 Procedure Pass [facility]PT [address] [place] [id number] Social History Tobacco Use Types Packs/Day Years Used Date Smoking Tobacco: Former Cigarettes Smokeless Tobacco: Never Alcohol Use Standard Drinks/Week Comments Yes 0 (1 standard drink = 0.6 oz pur e alcohol) 1 Education Answer Date Recorded Are you interested in more education? Not on tj e 09/28/2023 Are you concerned about learning? Not on file 09/28/2023 No 09/28/2023 No 09/28/2023 Digital Access Answer Date Recorded No 09/28/2023 No 09/28/2023 Reliable internet access at home? Not on file 09/28/2023 Device with a working camera? Not on file Intimate Partner Violence Answer Date R ecorded Are you denied basic needs s uch as food, clothing, or medical care? Deferred 10/25/2023 In the past 12 months have y ou been in a relationship with a person who hurts, threatens, or tries to control you? Deferred 10/25/2023 Are you denied basic needs s uch as food, clothing, or medical care? Deferred 10/25/2023 In the past 12 months have y ou been in a relationship with a person who hurts, threatens, or tries to control you? Deferred 10/25/2023 Comments No Sex and Gender Information Value Date Recorded Sex Assigned at Female 11/17/2023 1:54 PM EDT Legal Sex Female 9:05 AM EST Gender Identity Female 01/31/2024 2:44 PM EDT Sexual Orientation Straight 11/17/2023 1: 54 PM EDT documented as of this encounter Plan of Treatment Upcoming Encounters Date Type Department Care Team (Late st Contact Info) Description 08/27/2025 8:30 AM EST Office Visit [facility] [address] [place] [address] Isabel Chong MD [address] [place] [phone] [email or web address] documented as of this encounter Visit Diagnoses Not on filedocumented in this encounter Care Teams Mdm Developer Relationship Specialty Start Date End Date Katelyn Heart MD [address] [facility] [place] [address] PCP - General Internal Medicine 09/23/23 Tawana Hernadez MD [address] [place] [phone] 10/06/23spring, Ramona Morton MD [address] [place] [phone] Medical Oncology 10/06/23 Isabel Chong MD [address] [place] [phone] [email or web address] Medical Oncology 11/25/23 Jillian Chong MD, PhD [address] [place], [place] [id number] [place] [address] [email or web address] Surgical Oncology 08/29/24 documented as of this encounter Additional Source Comments The information contained in this document represents components of the legal health record. It is not the complete legal health record.[facility]
--- OUTSIDE RECORDS SUMMARY | 2025-04-18 14:56 | XMS_ITS ---
Author Organization [facility] Address [address] [place] [address] Phone Care Team Providers Care Academic Administrator Name Role Phone Katelyn Heart MD Primary Care Provider Tawana Hernadez MD Unavailable [phone] SpringRamona MD Unavailable [phone] Isabel Chong MD Unavailable [phone] Jillian Chong MD, PhD Unavailable Active Problems Problem Noted Date Diagnosed Date Malignant neoplasm of upper- outer quadrant of left breast in female, estrogen receptor negative 10/05/2023 Cancer Staging:Clinical stage from 10/25/2023:Stage IB(cT1c, cN0(sn), cM0, G3, ER: Negative, PA: Negative, HER2: Negative) - Signed by Alannah Flower MD on 11/24/2023 Hypertension 10/05/2023 Elevated cholesterol 10/05/2023 Current Treatment and Therapy Plans DOCETAXEL/CYCLOPHOSPHAMIDE* Plan Start Date:12/14/2023 Plan Provider:Isabel Chong MD Linked Problems Malignant neoplasm of upper- outer quadrant of left breast in female, estrogen receptor negative Treatment Medications cycloPHOSphamide (CYTOXAN) i nfusion 250 mL (liquid vial)DOCEtaxel (TAXOTERE) IVPB in 250 mL (Doses >85 mg to 199 mg) Past Treatment and Therapy Plans No past plan information found.
--- OUTSIDE RECORDS SUMMARY | 2025-04-18 14:56 | XMS_ITS | Encounter Summary ---
Author Organization [facility] Address [address] [place] [address] Phone Care Team Providers Care Opticianry Teacher Name Role Phone Katelyn Heart MD Primary Care Provider Tawana Hernadez MD Unavailable SpringRamona MD Unavailable [phone] Isabel Chong MD Unavailable Jillian Chong MD, PhD Unavailable Encounter Details Date Type Department Care Team (Late st Contact Info) Description 11/28/2023 Procedure Pass [facility] [address] [place] [address] Social History Tobacco Use Types Packs/Day Years Used Date Smoking Tobacco: Former Cigarettes Smokeless Tobacco: Never Alcohol Use Standard Drinks/Week Comments Yes 2 (1 standard drink = 0.6 oz pur [...] Description 08/27/2025 8:30 AM EST Office Visit [facility] [address] [place] [address] Isabel Chong MD [address] [place] [address] [email or web address] documented as of this encounter Visit Diagnoses Not on filedocumented in this encounter Care Teams Opticianry Teacher Relationship Specialty Start Date End Date Katelyn Heart MD [address] [place] [address] PCP - General Internal Medicine 09/23/23 Tawana Hernadez MD [address] [place] [phone] 10/06/23 Ramona Chan MD [address] [place] [address] [phone] Medical Oncology 10/06/23 Isabel Chong MD [address] [place] [phone] [email or web address] Medical Oncology 11/25/23 Jillian Chong MD, PhD [address] [place] [phone] [email or web address] Surgical Oncology 08/29/24 documented as of this encounter Additional Source Comments The information contained in this document represents components of the legal health record. It is not the complete legal health record.[facility]
--- OUTSIDE RECORDS SUMMARY | 2025-04-18 14:56 | XMS_ITS | Encounter Summary ---
Author Organization [facility] Address [address] [facility] [address] [place] [address] Phone Care Team Providers Care Sports Announcer Name Role Phone Katelyn Heart MD Primary Care Provider Tawana Hernadez MD Unavailable SpringRmaona MD Unavailable [phone] Isabel Chong MD Unavailable Jillian Chong MD, PhD Unavailable Encounter Details Date Type Department Care Team (Late st Contact Info) Description 10/06/2023 Ancillary Orders [facility] [address] [place] [address] Jillian Chong MD, PhD [address] [place] [phone] [place] [address] [email or web address] Cancer (Primary Dx) Social History Tobacco Use Types Packs/Day Years Used Date Smoking Tobacco: Never Assessed Education Answer Date Recorded Are you interested in more education? Not on tj e 09/28/2023 Are you concerned about learning? Not on file 09/28/2023 No 09/28/2023 No 09/28/2023 Digital Access Answer Date Recorded No 09/28/2023 No 09/28/2023 Reliable internet access at home? Not on file 09/28/2023 Device with a working camera? Not on file Comments Unknown Sex and Gender Information Value Date Recorded Sex Assigned at Female 11/17/2023 1:54 PM EDT Legal Sex Female 9:05 AM EST Gender Identity Female 01/31/2024 2:44 PM EDT Sexual Orientation Straight 11/17/2023 1: 54 PM EDT documented as of this encounter Plan of Treatment Upcoming Encounters Date Type Department Care Team (Late st Contact Info) Description 08/27/2025 8:30 AM EST Office Visit [facility] at [address] [address] Isabel Chong MD [address] [place] [email or web address] documented as of this encounter Results * (ABNORMAL) Mammogram Outside With Interpretation Or Consult (10/06/2023 3:00 PM EST) 10/06/2023 3:03 PM EST Impressions [facility] - 10/06/2023 4:24 PM EST Unifocal malignancy with an irregular 1.3 cm left breast mass representing biopsy-proven malignancy. The open coil clip in located along the superior- lateral edge of the mass and is amenable to single-sided localization. BI-RADS 6 KNOWN BIOPSY PROVEN MALIGNANCY ATTESTATION: I, Dr. Palak Cevallos as teaching physician, have reviewed the images for this case and if necessary edited the report originally created by Jennifer Garcia. 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 COMPARISON: No relevant prior MGB imaging is available at time of dictation. Only the submitted outside imaging is used for comparison. TECHNIQUE: The imaging reviewed below was performed at an outside institution. [facility] facilities are not responsible for image quality, completeness of this examination, or accuracy of patient identity. At the request of the patient's referring clinician, we have been asked to interpret the examination(s) pertinent to facilitating breast care at [facility]. Outside Imaging Reviewed: Mammogram(s): -August 19, 2023 screening mammogram. Digital mammography and tomosynthesis were performed; the tomosynthesis images are available and were reviewed. -August 31, 2023 left breast diagnostic mammogram. Digital mammography and tomosynthesis were performed; the tomosynthesis images are available and were reviewed. -September 05, 2023 left breast postprocedure mammogram. Digital mammography and tomosynthesis were performed; the tomosynthesis images are available and were reviewed. Breast Composition: There are scattered areas of fibroglandular density. Ultrasound(s): Limited left breast and axilla ultrasound on August 31, 2023. Ultrasound-guided left breast biopsy on September 05, 2023. Ultrasound is an pickling machine operator-dependent real-time examination and therefore no interpretation can be rendered on the submitted US imaging. Any US findings mentioned below are based only on what has been described in the outside imaging reports. MRI(s): None. FINDINGS: Right There are no significant findings in the right breast on August 19, 2023 screening mammogram. Left Focal asymmetry in the upper central aspect of the left breast at middle depth on August 19, 2023 screening mammogram needs additional imaging. The screening mammogram findings correspond to a 1.3 cm irregular spiculated mass in the upper central left breast on August 31, 2023 diagnostic mammogram. A 1.0 x 0.8 x 0.9cm irregular mass with irregular margins is seen at 12:00, 8 cm from the nipple on August 31, 2023 ultrasound. No lymphadenopathy is visualized. Ultrasound-guided biopsy of the mass at 12:00, 8 cm from the nipple is performed on September 05, 2023. The biopsy open coil is appropriately positioned along the superior-lateral edge of the mass on September 05, 2023 post procedure mammogram. [facility] outside pathology review: FINAL PATHOLOGIC DIAGNOSIS: Consult materials received from [facility], [place], [place]. A. BREAST, LEFT,12;00 MASS, CORE BIOPSY ([id number]; 09/05/23): Invasive ductal carcinoma, grade 2 to 3, 1cm in this biopsy. Procedure Note Palak Cevallos MD, PhD - 10/06/2023 BI MAMMOGRAM OUTSIDE WITH INTERPRETATION OR CONSULT Additional patient information: 77-year-old patient with recent leftbreast biopsy yielding triple negative invasive ductal carcinoma, whopresents for second opinion on outside hospital images. COMPARISON: No relevant prior MGB imaging is available at time ofdictation. Only the submitted outside imaging is used for comparison. TECHNIQUE: The imaging reviewed below was performed at an outsideinstitution. [facility] facilities are not responsible for imagequality, completeness of this examination, or accuracy of patientidentity. At the request of the patient's referring clinician, we havebeen asked to interpret the examination(s) pertinent to facilitatingbreast care at [facility]. Outside Imaging Reviewed: Mammogram(s): -August 19, 2023 screening mammogram. Digital mammography andtomosynthesis were performed; the tomosynthesis images are available andwere reviewed. -August 31, 2023 left breast diagnostic mammogram. Digital mammographyand tomosynthesis were performed; the tomosynthesis images are availableand were reviewed. -September 05, 2023 left breast postprocedure mammogram. Digital mammographyand tomosynthesis were performed; the tomosynthesis images are availableand were reviewed. Breast Composition: There are scattered areas of fibroglandular density. Ultrasound(s): Limited left breast and axilla ultrasound on August. Ultrasound-guided left breast biopsy on September 05, 2023. Ultrasoundis an pickling machine operator-dependent real-time examination and therefore nointerpretation can be rendered on the submitted US imaging. Any USfindings mentioned below are based only on what has [facility]. MRI(s): None. FINDINGS: Right There are no significant findings in the right breast on August 19, 2023screening mammogram. Left Focal asymmetry in the upper central aspect of the left breast [place] on August 19, 2023 screening mammogram needs additional imaging. The screening mammogram findings correspond to a 1.3 cm irregularspiculated mass in the upper central left breast on August 31iagnostic mammogram. A 1.0 x 0.8 x 0.9cm irregular mass with irregular margins is seen at12:00, 8 cm from the nipple on August 31, 2023 ultrasound. Nolymphadenopathy is visualized. Ultrasound-guided biopsy of the mass at 12:00, 8 cm from the nipple isperformed on September 05, 2023. The biopsy open coil is appropriatelypositioned along the superior-lateral edge of the mass on September 05ost procedure mammogram. [facility] outside pathology review: FINAL PATHOLOGIC DIAGNOSIS: Consult materials received from [facility], [place], [place]. A. BREAST, LEFT,12;00 MASS, CORE BIOPSY ([id number]; 09/05/23): Invasive ductal carcinoma, grade 2 to 3, 1cm in this biopsy. IMPRESSION: Unifocal malignancy with an irregular 1.3 cm left breast mass representingbiopsy-proven malignancy. The open coil clip in located along thesuperior-lateral edge of the mass and is amenable to single- sidedlocalization. BI-RADS 6 KNOWN BIOPSY PROVEN MALIGNANCY ATTESTATION: I, Dr. Palak Cevallos as teaching physician, have reviewedthe images for this case and if necessary edited the report originallycreated by Jennifer Garcia. us Jillian Chong MD, PhD IMG OUTSIDE IMAGING W / INTERPRETATION Final Result Performing Organization Address City/State/[facility] Co de Phone Number [address] [address] documented in this encounter Visit Diagnoses Diagnosis Cancer- Primary Other malignant neoplasm of unspecified site Cancer Other malignant neoplasm of unspecified site documented in this encounter Care Teams Sports Announcer Relationship Specialty Start Date End Date Katelyn Heart MD [address] [facility] [address] PCP - General Internal Medicine 09/23/23 Tawana Hernadez MD [address] [place] [address] 10/06/23 Ramona Chan MD [address] [place] [phone] Medical Oncology 10/06/23 Isabel Chong MD [address] [place] [address] [email or web address] Medical Oncology 11/25/23 Jillian Chong MD, PhD [address] [place], [place] [phone] [place] [address] [email or web address] Surgical Oncology 08/29/24 documented as of this encounter Additional Source Comments The information contained in this document represents components of the legal health record. It is not the complete legal health record.[facility]
--- OUTSIDE RECORDS SUMMARY | 2025-04-18 14:56 | XMS_ITS | Encounter Summary ---
Author Organization [facility] Address [address] [facility] [address] [place] [address] Phone Care Team Providers Care Automation Mechanic Name Role Phone Katelyn Heart MD Primary Care Provider Tawana Hernadez MD Unavailable Spring, Ramona Morton MD Unavailable [phone] Isabel Chong MD Unavailable [phone] Jillian Chong MD, PhD Unavailable Encounter Details Date Type Department Care Team (Latest Contact Info) Description 10/06/2023 Ancillary Orders Social History Tobacco Use Types Packs/Day Years [...] Encounters Date Type Department Care Team (Late Contact Info) Description 08/27/2025 8:30 AM EST Office Visit [facility] [place] [facility] [address] [place] [address] Isabel Chong MD [address] [place] [address] [email or web address] documented as of this encounter Visit Diagnoses Not on filedocumented in this encounter Care Teams Automation Mechanic Relationship Specialty Start Date End Date Katelyn Heart MD [address] [facility] [place] [address] PCP - General Internal Medicine 09/23/23 Tawana Hernadez MD [address] [place] [address] 10/06/23springRamona MD [address] [place] [address] [address] [place] [address] [email or web address] Medical Oncology 10/06/23 Isabel Chong MD [address] [place] [address] Medical Oncology 11/25/23 Jillian Chong MD, PhD [address] [place] [phone]-[phone] [place] [address] [email or web address] Surgical Oncology 08/29/24 documented as of this encounter Additional Source Comments The information contained in this document represents components of the legal health record. It is not the complete legal health record.[facility]
--- OUTSIDE RECORDS SUMMARY | 2025-04-18 14:56 | XMS_ITS | Clinical Summary ---
Author Organization [facility] Address [address] [place] [address] Phone Care Team Providers Care Cloud Services Architect Name Role Phone Katelyn Heart MD Primary Care Provider Tawana Hernadez MD Unavailable SpringRamona MD Unavailable [phone] Isabel Chong MD Unavailable Jillian Chong MD, PhD Unavailable Allergies No known active allergies Medications pravastatin (PRAVACHOL) 40 MG tablet Take 40 mg by mouth nightly at bedtime. 4 Active metoprolol succinate (TOPROL-XL) 50 MG 24 hr tablet Take 50 mg by mouth daily. 3 Active triamterene-hydr oCHLOROthiazide (MAXZIDE-25) 37.5-25 mg per tablet Take 1 tablet by mouth daily. 4 Active prochlorperazine (COMPAZINE) 10 MG tablet Take 1 tablet (10 mg total) by mouth every 6 (six) hours as needed. 60 tablet 3 4 Active Additional Information Patient not taking.Reported on 02/19/2025 miscellaneous medical supply Misc Disp: 1 (one) cranial prosthesis. Sig: Use as directed. 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 1 mL 4 Active omega-3 fatty acids-fish oil 340-1,000 mg Cap Take by mouth daily. Active therapeutic multivitamin tablet Take 1 tablet by mouth daily. Active Active Problems Problem Noted Date Diagnosed Date Malignant neoplasm of upper- outer quadrant of left breast in female, estrogen receptor negative 10/05/2023 Cancer Staging:Clinical stage from 10/25/2023:Stage IB(cT1c, cN0(sn), cM0, G3, ER: Negative, IL: Negative, HER2: Negative) - Signed by Alannah Flower MD on 11/24/2023 Hypertension 10/05/2023 Elevated cholesterol 10/05/2023 Encounters Date Type Department Care Team Description 02/19/2025 9:00 AM EDT Office Visit [facility] at [address] [address] Isabel Chong MD Malignant neoplasm of left breast in female, estrogen receptor negative, unspecified site of breast (Primary Dx) from Last 3 Months Immunizations No known immunizations Social History Tobacco Use Types Packs/Day Years Used Date Smoking Tobacco: Former Cigarettes Smokeless Tobacco: Never Tobacco Cessation:Counseling Given: Not Answered Alcohol Use Standard Drinks/Week Comments Yes 2 [...] Orientation Straight 11/17/2023 1: 54 PM EDT Last Filed Vital Signs Vital Sign Reading Time Taken Comments Blood Pressure 163/74 02/19/2025 8:56 AM EDT Pulse 61 02/19/2025 8:56 AM EDT Temperature 35.3 C (95.5 F) 02/19/2025 8:56 AM EDT Respiratory Rate 18 03/02/2024 8:59 AM EDT Oxygen Saturation 100% 02/19/2025 8:56 AM EDT Inhaled Oxygen Concentration - - Weight 84.9 kg (187 lb 3.2 oz) 02/19/2025 8:52 A M EDT Height 165.1 cm (5' 5 ) 02/19/2025 8:52 AM EDT Body Mass Index 31.15 02/19/2025 8:52 AM EDT Plan of Treatment Upcoming Encounters Date Type Department Care Team (Late st Contact Info) Description 08/27/2025 8:30 AM EST Office Visit [facility] at [address] [address] Isabel Chong MD [address] [place] [address] [email or web address] Health Maintenance Due Date Last Done Comments Adult Td,Tdap Booster 1944 LIPID PANEL 1944 DEPRESSION SCREENING 1956 SMOKING Hx and SMOKELESS TOBACCO SCREENING 1957 PNEUMOCOCCAL VACCINES (50+ years) (1 of 2 - PCV) 11/07/1963 ZOSTER VACCINES (1 of 2) 11/07/1963 OSTEOPOROSIS SCREENING INITIAL (ONE-TIME) 2009 RSV VACCINE (1 - 1-dose 75+ series) 11/07/2019 POTASSIUM LEVEL 02/20/2025 02/21/2024, 07/0 09/2023, 01/10/2024, Additional history exists INFLUENZA VACCINE (#1) 2025 COVID-19 VACCINE ( season) 2025 BLOOD PRESSURE 08/22/2025 02/19/2025 HEPATITIS A VACCINES Aged Out No long er eligible based on patient's age to complete this topic HIB VACCINES Aged Out No longer eligi ble based on patient's age to complete this topic MENINGOCOCCAL VACCINES (ACWY) Aged Out No longer eligible based on patient's age to complete this topic MENINGOCOCCAL VACCINES (B) Aged Out N o longer eligible based on patient's age to complete this topic Medical Devices Not on file Procedures Procedure Name Priority Date/Time Associated Diagnosis Comments COMPREHENSIVE METABOLIC PANEL STAT 02/21/2024 11:55 AM EDT Malignant neoplasm of left breast in female, estrogen receptor negative, unspecified site of breast from Last 3 Months or Most Recently Relevant to Health Maintenance Results * (ABNORMAL) Comprehensive metabolic panel (02/21/2024 11:55 AM EDT) SODIUM 137 133 - 146 mmol/L [facility] POTASSIUM 4.1 3.3 - 5.1 mmol/L [facility] CHLORIDE 99 96 - 108 mmol/L [facility] CO2 27 21 - 35 mmol/L [facility] BUN 17 6 - 19 mg/dL [facility] CREATININE 0.90 0.5 - 1.5 mg/dL [facility] GLUCOSE 214(H) 70 - 99 mg/dL [facility] ALBUMIN 3.8(L) 3.9 - 4.8 g/dL [facility] TOTAL PROTEIN 6.9 6.5 - 8.0 g/dL [facility] CALCIUM 9.6 8.4 - 10.3 mg/dL [facility] ALKALINE PHOSPHATASE 72 39 - 117 U/L [facility] TOTAL BILIRUBIN 0.4 0.0 - 1.2 mg/dL [facility] AST 29 0 - 37 U/L [facility] ALT 28 0 - 40 U/L [facility] GLOBULIN 3.1 1 - 4.8 g/dL [facility] EGFR 65 >59 mL/min/1.7 3m2 [facility] Comment:Estimated glomerular filtration rate calculated using the CKD-EPI refit equation. ANION GAP 15 10 - 20 mmol/L [facility] Blood 02/21/2024 11:5 5 AM EDT 02/21/2024 12:00 PM EDT us Isabel Chong MD LAB BLOOD ORDERABLES Final Re sult [facility] [address] [place] [address] from Last 3 Months or Most Recently Relevant to Health Maintenance Insurance MEDICARE PPO BLUE REPLACEMENT MEDICARE PPO BLUE REPLACEMENT MEDICARE PPO BLUE [place] [address] [place] [address] MEDICARE PPO [place]UE [place] [place] [address] MED[address]PO [place] [place] [address] MEDICARE PPO BLUE REPLACEMENT Care Teams Cloud Services Architect Relationship Specialty Start Date End Date Katelyn Heart MD [facility] [place] [address] PCP - General Internal Medicine 09/23/23 Tawana Hernadez MD [address] [place] [address] 10/06/23spring, Ramona Morton MD [address] [place] [address] [address] [place] [address] [email or web address] Medical Oncology 10/06/23 Isabel Chong MD [address] [place] [address] [email or web address] Medical Oncology 11/25/23 Jillian Chong MD, PhD [address] [place] [phone]-[phone] [place] [address] [email or web address] Surgical Oncology 08/29/24 Additional Source Comments The information contained in this document represents components of the legal health record. It is not the complete legal health record.[facility]
== END 2025-04-18 13:35 | disposition home or self-care (01) ==
LOC: HO.HVS 12:55
PROVIDERS: PCP Internal Medicine; Visit Provider Surgery Vascular Surgery
DX: I83.12 Varicose veins of left lower extremity with inflammation (principal); M79.671 Pain in right foot
CPT/HCPCS: 99214

== ENCOUNTER → 2025-04-18 12:54 | Outpatient (BNVA) | payer MEDICARE, SELFPAY | PROVIDERS: PCP Internal Medicine; Visit Provider Surgery Vascular Surgery | DX: I83.12 Varicose veins of left lower extremity with inflammation (principal); M79.671 Pain in right foot | CPT/HCPCS: 99212 ==

== ENCOUNTER 2025-07-03 08:49 | Outpatient (REF) | payer MEDICARE, SELFPAY ==
[2025-07-03 08:59] LABS: MANUAL DIFF FLAG NO
--- OUTSIDE RECORDS SUMMARY | 2025-07-03 09:12 | XMS_ITS | Encounter Summary ---
Author Organization [facility] Address [address] [facility] [address] [place] [address] Phone Care Team Providers Care Feather Trimmer Name Role Phone Katelyn Heart MD Primary Care Provider Tawana Hernadez MD Unavailable [phone] SpringRamona MD Unavailable Isabel Chong MD Unavailable Jillian Chong MD, PhD Unavailable Encounter Details Date Type Department Care Team (Late st Contact Info) Description 10/25/2023 Procedure Pass [facility] PERIOPERATIVE DEPT [address] [place] [phone] Social History Tobacco Use Types Packs/Day Years [...] Description 08/27/2025 8:30 AM EST Office Visit [facility] [address] [place] [address] Isabel Chong MD [address] [place] [address] [email or web address] documented as of this encounter Visit Diagnoses Not on filedocumented in this encounter Care Teams Feather Trimmer Relationship Specialty Start Date End Date Katelyn Heart MD [address] [place] [address] PCP - General Internal Medicine 09/23/23 Tawana Hernadez MD [address] [place] [address] 10/06/23spring, Ramona Morton MD [address] [place] [phone] Medical Oncology 10/06/23 Isabel Chong MD [address] [place] [address] [email or web address] Medical Oncology 11/25/23 Jillian Chong MD, PhD [address] [place], [place] [phone] [place] [address] [email or web address] Surgical Oncology 08/29/24 documented as of this encounter Additional Source Comments The information contained in this document represents components of the legal health record. It is not the complete legal health record.[facility]
--- OUTSIDE RECORDS SUMMARY | 2025-07-03 09:12 | XMS_ITS | Encounter Summary ---
Author Organization [facility] Address [address] [facility] [address] [place] [address] Phone Care Team Providers Care Small Business Director Name Role Phone Katelyn Heart MD Primary Care Provider Tawana Hernadez MD Unavailable [phone] Spring, Ramona Morton MD Unavailable [phone] Isabel Chong MD Unavailable [phone] Jillian Chong MD, PhD Unavailable Encounter Details Date Type Department Care Team (Late st Contact Info) Description 11/28/2023 Procedure Pass [facility] [address] [facility] [address] [place] [address] Social History Tobacco Use Types Packs/Day Years [...] Description 08/27/2025 8:30 AM EST Office Visit [facility] [address] [place] [address] Isabel Chong MD [address] [place] [address] [email or web address] documented as of this encounter Visit Diagnoses Not on filedocumented in this encounter Care Teams Small Business Director Relationship Specialty Start Date End Date Katelyn Heart MD [address] [place] [address] PCP - General Internal Medicine 09/23/23 Tawana Hernadez MD [address] [place] [address] 10/06/23 Ramona Chan MD [address] [place] [phone] Medical Oncology 10/06/23 Isabel Chong MD [address] [place] [address] [email or web address] Medical Oncology 11/25/23 Jillian Chong MD, PhD [address] [place] [address] [email or web address] Surgical Oncology 08/29/24 documented as of this encounter Additional Source Comments The information contained in this document represents components of the legal health record. It is not the complete legal health record.[facility]
--- OUTSIDE RECORDS SUMMARY | 2025-07-03 09:12 | XMS_ITS ---
Author Organization [facility] Address [address] [facility] [address] [place] [address] Phone Care Team Providers Care Wood Lathe Operator Name Role Phone Katelyn Heart MD Primary Care Provider Tawana Hernadez MD Unavailable [phone] SpringRamona MD Unavailable [phone] Isabel Chong MD Unavailable [phone] Jillian Chong MD, PhD Unavailable Active Problems Problem Noted Date Diagnosed Date Malignant neoplasm of upper- outer quadrant of left breast in female, estrogen receptor negative 10/05/2023 Cancer Staging:Clinical stage from 10/25/2023:Stage IB(cT1c, cN0(sn), cM0, G3, ER: Negative, MS: Negative, HER2: Negative) - Signed by Alannah [...]
--- OUTSIDE RECORDS SUMMARY | 2025-07-03 09:12 | XMS_ITS | Encounter Summary ---
Author Organization [facility] Address [address] [facility] [address] [place] [address] Phone Care Team Providers Care Industrial Staff Nurse Name Role Phone Katelyn Heart MD Primary Care Provider [phone] Tawana Hernadez MD Unavailable [phone] SpringRamona MD Unavailable [phone] Isabel Chong MD Unavailable Jillian Chong MD, PhD Unavailable Encounter Details Date Type Department Care Team (Late st Contact Info) Description 10/06/2023 Ancillary Orders [facility] Imaging [address] [place] [address] Jillian Chong MD, PhD [address] [place] [phone] [place] [address] [email or web address] (Primary Dx) Social History Tobacco Use [...] Description 08/27/2025 8:30 AM EST Office Visit [facility] at [address] [address] Isabel Chong MD [address] [place] [address] [email or web address] documented as of this encounter Results * (ABNORMAL) Mammogram Outside With Interpretation Or Consult (10/06/2023 3:00 PM EST) 10/06/2023 3:03 PM EST Impressions [facility] - 10/06/2023 4:24 PM EST Unifocal malignancy [...] report originally created by Jennifer Garcia. Narrative [facility] - 10/06/2023 4:24 PM EST BI MAMMOGRAM [...] below was performed at an outside institution. [facility] facilities are not responsible for image quality, completeness of this examination, or accuracy of patient identity. At the request of the patient's referring clinician, we have been asked to interpret the examination(s) pertinent to facilitating breast care at [facility]. Outside Imaging Reviewed: Mammogram(s): -August 19, 2023 [...] on September 05, 2023. Ultrasound is an local operator-dependent real-time examination and therefore no interpretation [...] on September 05, 2023 post procedure mammogram. [facility] outside pathology review: FINAL PATHOLOGIC DIAGNOSIS: Consult materials received from [facility], [place], [place]. A. BREAST, LEFT,12;00 MASS, CORE BIOPSY ([id number]; 09/05/23): Invasive ductal carcinoma, grade 2 to [...] reviewed below was performed at an outsideinstitution. [facility] facilities are not responsible for imagequality, completeness of this examination, or accuracy of patientidentity. At the request of the patient's referring clinician, we havebeen asked to interpret the examination(s) pertinent to facilitatingbreast care at [facility]. Outside Imaging Reviewed: Mammogram(s): -August 19, 2023 [...] biopsy on September 05, 2023. Ultrasoundis an local operator-dependent real-time examination and therefore nointerpretation can be rendered on the submitted US imaging. Any USfindings mentioned below are based only on what has been described [facility]. MRI(s): None. FINDINGS: Right There [...] the mass on September 05ost procedure mammogram. [facility] outside pathology review: FINAL PATHOLOGIC DIAGNOSIS: Consult materials received from [facility], [place], [place]. A. BREAST, LEFT,12;00 MASS, CORE BIOPSY ([id number]; 09/05/23): Invasive ductal carcinoma, grade 2 to [...] OUTSIDE IMAGING W / INTERPRETATION Final Result [address] [address] documented in this encounter Visit Diagnoses Diagnosis Cancer- Primary Other malignant neoplasm of unspecified site Cancer Other malignant neoplasm of unspecified site documented in this encounter Care Teams Industrial Staff Nurse Relationship Specialty Start Date End Date Katelyn Heart MD [address] [place] [address] PCP - General Internal Medicine 09/23/23 Tawana Hernadez MD [address] [place] [address] 10/06/23 Ramona Chan MD [address] [place] [phone] Medical Oncology 10/06/23 Isabel Chong MD [address] [place] [address] [email or web address] Medical Oncology 11/25/23 Jillian Chong MD, PhD [address] [place], [place] [phone] [place] [address] [email or web address] Surgical Oncology 08/29/24 documented as of this encounter Additional Source Comments The information contained in this document represents components of the legal health record. It is not the complete legal health record.[facility]
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
--- OUTSIDE RECORDS SUMMARY | 2025-07-03 09:12 | XMS_ITS | Encounter Summary ---
Author Organization [facility] Address [address] [facility] [address] [place] [address] Phone Care Team Providers Care Education And Training Coordinator Name Role Phone Katelyn Heart MD Primary Care Provider Tawana Hernadez MD Unavailable [phone] Spring, Ramona Morton MD Unavailable [phone] Isabel Chong MD Unavailable Jillian Chong [...] Description 08/27/2025 8:30 AM EST Office Visit [facility] at [address] [place] [address] Isabel Chong MD [address] [place] [address] [email or web address] documented as of this encounter Visit Diagnoses Not on filedocumented in this encounter Care Teams Education And Training Coordinator Relationship Specialty Start Date End Date Katelyn Heart MD [address] [place] [address] PCP - General Internal Medicine 09/23/23 Tawana Hernadez MD [address] [place] [address] 10/06/23springRamona MD [address] [place] [address] [address] [place] [address] [email or web address] Medical Oncology 10/06/23 Isabel Chong MD [address] [place] [email or web address] Medical Oncology 11/25/23 Jillian Chong MD, PhD [address] [place] [phone] [place] [address] [email or web address] Surgical Oncology 08/29/24 documented as of this encounter Additional Source Comments The information contained in this document represents components of the legal health record. It is not the complete legal health record.[facility]
[2025-07-03 09:17] LABS: Hematocrit 40.5 % (37.0-47.0); Hemoglobin 13.2 g/dl (12.0-16.0); Imm Gran Abs Auto 0.01 X10*3/uL (0.00-0.03); Imm Gran Pct Auto 0.2 % (0.0-0.4); Lymphocytes Absolute Auto 2.3 X10*3/uL (1.2-4.9); Mean Corpuscular HGB Conc 32.6 g/dl (31.0-35.0); Mean Corpuscular Hemoglobin 28.8 pg (27.0-33.0); Mean Corpuscular Volume 88.2 fL (80.0-98.0); NRBC Abs Auto 0.000 X10*3/uL (0.0-0.012); NRBC Pct Auto 0.0 /100WBC (0.0-0.2); Platelet Count 191 X10*3/uL (160-400); Red Blood Count 4.59 X10*6/uL (4.20-5.50); White Blood Count 6.6 X10*3/uL (4.8-10.8)
[2025-07-03 09:54] LABS: Alanine Aminotransferase 25 U/L (0-31); Albumin Level 4.5 g/dL (3.5-5.0); Alkaline Phosphatase 65 U/L (39-117); Anion Gap 11 (12-20); Aspartate Amino Transferase 25 U/L (5-31); Blood Urea Nitrogen 19 mg/dL (9-16); Calcium 9.6 mg/dL (8.4-10.2); Carbon Dioxide 31 mmol/L (22-29); Chloride 105 mmol/L (96-108); Cholesterol 226 mg/dL (<200); Estimated Glomerular Filt Rate 55; HDL Cholesterol 46 mg/dL (>40); Potassium 3.8 mmol/L (3.3-5.1); Sodium 143 mmol/L (135-145); Total Protein 7.2 g/dL (6.5-8.0); Triglycerides 200 mg/dL (<150)
== END 2025-07-03 08:50 | disposition home or self-care (01) ==
LOC: HO.LAB 08:49
PROVIDERS: PCP Internal Medicine; Visit Provider Internal Medicine
DX: Z00.00 Encounter for general adult medical examination without abnormal findings (principal); C50.919 Malignant neoplasm of unspecified site of unspecified female breast; E78.5 Hyperlipidemia, unspecified; I10 Essential (primary) hypertension; R73.9 Hyperglycemia, unspecified
CPT/HCPCS: 36415; 80053; 80061; 82306; 84443; 85025

== ENCOUNTER 2025-07-08 10:00 | Outpatient (AMB) | payer MEDICARE, SELFPAY ==
[2025-07-08 10:07] VITALS: BP 142/82; PULSE 68; RESP 17; TEMP 36.7; O2SAT 97; BMI 29.6
--- NOTE | 2025-07-08 10:07 | MHC.PC.OV ---
Vital Signs 07/08/25 10:07 Height 5 ft 5 in Weight 178 lb BMI 29.6 BP 142/82 H Blood Pressure Location Lt brachial Position Sitting Respiration 17 Pulse 68 Pulse Source Pulse Oximeter Temp 98.1 F Temp Source Oral Pulse Oximetry (%) 97 Oxygen Delivery Method Room Air Intake Visit Reasons: Annual PE Intake Note: Pt is here today for PE. Allergies No Known Allergies Allergy (Verified 07/08/25 10:10) Medication List - Last Reconciled 07/08/25 by Katelyn Heart MD metoprolol succinate ER 50 mg PO DAILY oztahzmv-fet-esfj-FA-vit K-lut 8 mg iron-400 mcg-50 mcg (Multivitamin Women 50 Plus) 1 tab PO DAILY omega 5-pyx-hjw-fish oil 60-90-500 mg (Fish Oil) 1 cap PO DAILY pravastatin 40 mg PO BEDTIME rosuvastatin (Crestor) 10 mg PO DAILY triamterene-hydrochlorothiazid 37.5-25 mg 1 tab PO DAILY Tobacco use date assessed: 07/08/25 Fall risk assessment: No Falls in past year Last assessed Fall Risk: 07/08/25 Dental Screening Dental Screen Date: 06/11/24 HPI Annual PE HPI Details Pt presents for PE. [facility] Medical History (Updated 07/08/25 @ 10:27 by Katelyn Heart MD) Triple negative breast cancer Invasive ductal carcinoma of left breast Dysuria Osteopenia Hyperglycemia Thyroid nodule Hyperlipidemia HTN (hypertension) Surgical History History of surgery Hx of vein stripping Hx of blepharoplasty H/O colonoscopy S/P KWAKU (total abdominal hysterectomy) Family History Father Stroke Mother No problems noted. Social History Household Members: Spouse Housing: House Are you a primary manager critical care unit to a significant other at home: No Do you presently have visiting nurse or other home services: No Alcohol intake: current Alcohol intake frequency: does not drink Patient Tobacco Use Status: Never used Tobacco e-Cigarette/Vaping Use: Never Used service: No Current occupational status: retired Sexual orientation: Straight/Heterosexual Gender identity: Female Cognitive needs: No Hearing needs: No Vision needs: Yes Female Reproductive History Menstrual Age of Menarche: 16 Questionnaire PHQ-9 Over the last 2 weeks, how often have you been bothered by any of the following problems? 1. Little interest or pleasure in doing things: not at all 2. Feeling down, depressed, or hopeless: not at all 3. Trouble falling or staying asleep, or sleeping too much: not at all 4. Feeling tired or having little energy: not at all 5. Poor appetite or overeating: not at all 6. Feeling bad about yourself - or that you are a failure or have let yourself or your family down: not at all 7. Trouble concentrating on things, such as reading the newspaper or watching television: not at all 8. Moving or speaking so slowly that other people could have noticed. Or the opposite - being so fidgety or restless that you have been moving around a lot more than usual: not at all 9. Thoughts that you would be better off or of hurting yourself in some way: not at all Total score: 0 Depression Screening Interpretation: Negative Depression Screening Done: Yes [address]294 - PHQ-9 Billing: Yes Source: Developed by Drs. Christiano Natarajan, Anita De, Jose Antonio Bryant and colleagues, with an educational carlton from [employer]. Thrive Questionnaire Date Thrive assessed: 07/08/25 I am a: Patient What is your living situation today?: I have a steady place to live Within the past 12 months, did the food you bought not last and you didn't have the money to get more?: I choose not to answer this question Within the past 12 months, did you worry whether your food would run out before you got money to buy more?: I choose not to answer this question Do you have trouble paying for medicines?: I choose not to answer this question Do you have trouble getting transportation to medical appointments?: No Do you have trouble paying your heating and electricity bill?: No Do you have trouble taking care of your child, family member or friend?: No Do you have trouble with day-to-day activities such as bathing, preparing meals, shopping, managing finances, etc.?: No Are you currently unemployed and looking for a job?: No Are you interested in more education?: Yes Please select the resources that you would like help with: None Currently or been in a relationship where the following occur: No concerns reported THRIVE Score: 0 AUDIT C Alcohol Use Questionnaire (AUDIT-C) 1. How often do you have a drink containing alcohol?: Monthly or less 2. How many drinks containing alcohol do you have on a typical day when you are drinking?: 1 or 2 3. How often do you have six or more drinks on one occasion?: Never Total Score: 1 ANASTASIA-7 AMB Questionnaire ANASTASIA-7 Date ANASTASIA - 7 assessed: 07/08/25 Feeling nervous, anxious, or on edge: 0 = Not at all Not being able to stop or control worryin = Not at all Worrying too much about different things: 0 = Not at all Trouble relaxin = Several days Being so restless that it is hard to sit still: 0 = Not at all Becoming easily annoyed or irritable: 0 = Not at all Feeling afraid as if something awful might happen: 0 = Not at all Total ANASTASIA-7 score (0-4 normal; 5-9 mild; 10-14 moderate; 15-21 severe): 1 Source: Developed by Drs. Christiano Natarajan, Anita De, Jose Antonio Bryant and colleagues, with an educational carlton from [employer]. ANASTASIA-7 Assessment Billing ANASTASIA-7 Assessment Tool: ANASTASIA-7 Assessment 33114 Review of Systems Const All systems reviewed & are unremarkable except as noted in HPI and below Eyes Reports no additional complaints ENT Reports no additional complaints Card Reports no additional complaints Resp Reports no additional complaints GI Reports no additional complaints Reports no additional complaints Physical exam (Primary Care) Vital Signs: Last Vital Signs Temp 98.1 F 07/08/25 10:07 Pulse 68 07/08/25 10:07 Resp 17 07/08/25 10:07 BP 142/82 H 07/08/25 10:07 Pulse Ox 97 07/08/25 10:07 Oxygen Delivery Method Room Air 07/08/25 10:07 BMI result Body Mass Index 29.6 Tobacco/Smoking Status: Tobacco use Status Tobacco use date assessed 07/08/25 07/08/25 10:13 Patient Tobacco Use Status Never used Tobacco 07/08/25 10:13 e-Cigarette/Vaping Use Never Used 07/08/25 10:13 PHQ-9: PHQ-9 Score PHQ-9: Total score 0 07/08/25 10:19 Depression Screening Interpretation: Negative Thrive Assessment: Date of Thrive Assessment Date Thrive assessed 07/08/25 07/08/25 10:13 Currently or been in a relationship where the following occur: No concerns reported Const General: no acute distress HENMT Head: Yes normal to inspection Face and sinus: Yes normal facial exam Eyes General: appearance normal, both eyes and all related structures Resp Effort & Inspection: normal respiratory effort Auscultation: clear to auscultation bilaterally Cardio Rhythm: regular rhythm Heart sounds: S1 normal heart sound present and S2 normal heart sound present GI Inspection: Yes normal to inspection Palpation (GI): Soft to palpation Percussion: Yes normal to percussion Auscultation: normal bowel sounds Results AMB Hemoglobin A1c AMB Hemoglobin A1c 5.7 % Last Edit by YANG Arevalo on 07/08/25 10:27 Coding Level of Care Code Est Pt Prev Care >65y(58511) Diagnoses HTN (hypertension) I10 Hyperlipidemia E78.5 Hyperglycemia R73.9 Invasive ductal carcinoma of left breast C50.912 Triple negative breast cancer C50.919 Annual physical exam Z00.00 Additional Codes ANASTASIA-7 Assessment Billing - ANASTASIA-7 Assessment Tool: ANASTASIA-7 Assessment 13576 ([id number]) PHQ-9 - 32205 - PHQ-9 Billing: Yes ([id number]) Assessment & Plan Assessment & Plan (1) HTN (hypertension): Code(s): I10 - Essential (primary) hypertension Category: Medical Plan: Continue current medications (2) Hyperlipidemia: Code(s): E78.5 - Hyperlipidemia, unspecified Category: Medical Plan: Change pravastatin to Crestor 10 mg a day follow-up in 3 months with a fasting labs before (3) Hyperglycemia: Comment: A1C 6.1 06/21, A1C 5.9 10/21, A1C 5.7 07/2025 Code(s): R73.9 - Hyperglycemia, unspecified Category: Medical Plan: A1c is 5.7, continue ADA diet regular exercise (4) Invasive ductal carcinoma of left breast: Code(s): C50.912 - Malignant neoplasm of unspecified site of left female breast Category: Medical Plan: Follow-up with oncology and breast surgeon at [facility] (5) Triple negative breast cancer: Comment: s/p lumpectomy [place] [facility] 11/[place], chemo and radiation at [facility] Code(s): C50.919 - Malignant neoplasm of unspecified site of unspecified female breast Category: Medical Plan: Follow-up with oncology (6) Annual physical exam: Code(s): Z00.00 - Encounter for general adult medical examination without abnormal findings Category: Medical Plan: Well-balanced diet regular physical activity discussed with the patient Orders: Orders Comprehensive Blum. Panel Fast 3 Months E78.5 - Hyperlipidemia, unspecified, I10 - Essential (primary) hypertension, R73.9 - Hyperglycemia, unspecified Complete Blood Count Auto Diff 3 Months E78.5 - Hyperlipidemia, unspecified, I10 - Essential (primary) hypertension, R73.9 - Hyperglycemia, unspecified Hemoglobin A1c 3 Months E78.5 - Hyperlipidemia, unspecified, I10 - Essential (primary) hypertension, R73.9 - Hyperglycemia, unspecified Microalbumin, Random (w Creat) 3 Months E78.5 - Hyperlipidemia, unspecified, I10 - Essential (primary) hypertension, R73.9 - Hyperglycemia, unspecified AMB Hemoglobin A1c Today Z13.9 - Encounter for screening, unspecified Lipid Panel 3 Months E78.5 - Hyperlipidemia, unspecified, I10 - Essential (primary) hypertension, R73.9 - Hyperglycemia, unspecified Medications: New rosuvastatin (Crestor) 10 mg PO DAILY 90 tabs 3RF Discontinued pravastatin Discontinued Reason: Doctor's Order 40 mg PO BEDTIME 90 tabs 3RF
== END 2025-07-08 10:33 | disposition home or self-care (01) ==
LOC: HO.HMCC 10:00
PROVIDERS: PCP Internal Medicine; Visit Provider Internal Medicine
DX: Z00.00 Encounter for general adult medical examination without abnormal findings (principal); C50.912 Malignant neoplasm of unspecified site of left female breast; C50.919 Malignant neoplasm of unspecified site of unspecified female breast; I10 Essential (primary) hypertension; E78.5 Hyperlipidemia, unspecified; R73.9 Hyperglycemia, unspecified

== ENCOUNTER → 2025-07-08 10:00 | Outpatient (BNVA) | payer MEDICARE, SELFPAY | PROVIDERS: PCP Internal Medicine; Visit Provider Internal Medicine | DX: Z00.00 Encounter for general adult medical examination without abnormal findings (principal); I10 Essential (primary) hypertension; E78.5 Hyperlipidemia, unspecified; R73.9 Hyperglycemia, unspecified; C50.912 Malignant neoplasm of unspecified site of left female breast | CPT/HCPCS: 83036; 96127; 99397 ==